=== PATIENT | male | born 1940 | race Caucasian/White ===

== ENCOUNTER 2020-02-06 17:17 | Inpatient (IN) | payer MEDICARE, SELFPAY ==
[2020-02-06] VITALS (8 sets, daily range): BP systolic 121–143; BP diastolic 72–105; PULSE 81–111; RESP 15–28; TEMP 36.9–39; O2SAT 92–95; BMI 27.3
--- NOTE | ~2020-02-06 | XR_ITS ---
EXAMINATION: XR chest 1V portable 02/06/2020 18:26 INDICATION: Fever. Hypoxia. PROCEDURE: AP portable chest COMPARISON: Comparison to multiple prior studies sequentially, with oldest reviewed study dated 12/12. FINDINGS: The lungs are clear. The cardiomediastinal silhouette is within normal limits. There are no pleural effusions. There is no pneumothorax suspected. IMPRESSION: 1: NO ACUTE CARDIOPULMONARY DISEASE. Reviewed, dictated and finalized at location A.
--- NOTE | 2020-02-06 18:04 | ECG_ITS ---
Measurements Intervals [place] Rate: 106 P: 43 CT: 145 QRS: 23 QRSD: 101 T: 49 QT: 335 QTc: 445 Interpretive Statements SINUS TACHYCARDIA DELAYED PRECORDIAL R/S TRANSITION INFERIOR INFARCT, AGE INDETERMINATE ABNORMAL ECG Electronically Signed On 02-06-2020 18:27:36 CDT by Luis Mosley D.O.
[2020-02-06] MEDS: SODIUM CHLORIDE 0.9% IV 1,000 ML 999 ML IV CONT (18:07)
[2020-02-06 18:16] LABS: Basophils Percent Auto 0.2 % (0.2-1.2); Hematocrit 45.5 % (42.0-52.0); Hemoglobin 15.7 g/dL (14.0-18.0); Immature Granulocyte Absolute 0.08 K/mm3 (0.00-0.031); Immature Granulocyte Percent A 0.5 % (0-0.5); Lymphocytes Absolute Auto 0.59 K/mm3 (0.9-3.2); Lymphocytes Percent Auto 3.9 % (18.3-44.2); Mean Corpuscular HGB Conc 34.5 g/dl (32-36); Mean Corpuscular Hemoglobin 30.1 pg (26-34); Mean Corpuscular Volume 87.2 fl (80-100); Mean Platelet Volume 10.8 fl (7.4-10.4); Monocytes Absolute Auto 0.9 K/mm3 (0.1-0.6); Monocytes Percent Auto 5.6 % (2.6-8.5); Neutrophils Absolute Auto 13.7 K/mm3 (1.3-6.7); Neutrophils Percent Auto 89.8 % (45.5-73.1); Platelet Count Result 155 k/mm3 (150-375); Red Blood Count 5.22 M/mm3 (4.6-6.20); Red Cell Distribution Width 12.4 % (11.5-14.5); White Blood Count 15.2 K/mm3 (4.5-10.0)
[2020-02-06 18:21] LABS: Add Urine Microscopic? YES; Appearance Urine Clear (Clear); Bilirubin Urine Negative (Negative); Blood Urine 2+ (Negative); Color Urine Yellow (Yellow); Glucose Urine UA Negative (Negative); Ketones Urine Negative (Negative); Leukocyte Esterase Ur Negative LEU/UL (Negative); Mucus Urine Rare /lpf; Nitrate Urine Negative (Negative); Protein Urine Negative (Negative); RBC Urine 51-75 /hpf (0-2); Specific Grav Ur 1.021 (1.001-1.035); Squamous Epithelial Cell Urine Rare /hpf (Few); Urobilinogen Urine Negative mg/dL (<2.0); WBC Urine 0-3 /hpf
[2020-02-06 18:25] LABS: INR 1.1; Prothrombin Time 13.7 Seconds (11.1-14.7)
[2020-02-06 18:26] LABS: Partial Thromboplastin Time 29.1 SECONDS (22.3-36.8)
[2020-02-06 18:28] LABS: Lactic Acid Reflex 0.9 mmol/L (0.7-2.1)
[2020-02-06 18:30] LABS: Alanine Aminotransferase 31 U/L (4-50); Albumin Level 3.9 g/dL (3.5-5.1); Alkaline Phosphatase 59 U/L (38-126); Aspartate Amino Transferase 32 U/L (17-59); Bilirubin,Total 1.3 mg/dL (0.2-1.3); Blood Urea Nitrogen 22 mg/dL (9-20); CRP 5.4 mg/dL (<1.0); Calcium 8.4 mg/dL (8.4-10.2); Carbon Dioxide 23 mmol/L (22-30); Chloride 106 mmol/L (98-107); Estimated CRCL calculation 43 ml/min; Estimated Glomerular Filt Rate 59; Glucose 111 mg/dL (75-110); Potassium 3.9 mmol/L (3.4-5.0); Sodium 136 mmol/L (137-145)
--- NOTE | 2020-02-06 18:48 | ED.GENADULT ---
HPI - General Adult General Chief complaint: Weakness Stated complaint: weakness Time Seen by Provider: 02/06/20 17:20 History of Present Illness HPI narrative: Patient is a 79-year-old male who presents ER with weakness and fever. Symptoms began yesterday evening. Associated with urinating on himself. No known sick contacts and apparently has not been traveling. Oxygen levels are low for EMS patient is tachypneic. He received nasal cannula oxygen for supportive therapy. Patient is oriented x3 but is fatigued to the point where has difficulty moving the bed and cannot give a history. Related Data Home Medications Medication Instructions Recorded Confirmed aspirin 325 mg PO DAILY 02/06/20 lisinopril 20 mg PO DAILY 02/06/20 Allergies Allergy/AdvReac Type Severity Reaction Status Date / Time gabapentin Allergy Severe Unknown Verified 02/06/20 17:23 Penicillins Allergy Unknown Unknown Verified 02/06/20 17:23 Review of Systems Review of Systems: All systems reviewed & are unremarkable except as noted in HPI and below Constitutional: Constitutional: Reports fever(s) and Reports weakness Eyes: Eyes: Denies change in vision and Denies photophobia ENT: Denies nasal congestion and Denies sore throat Cardiovascular: Cardiovascular: Denies chest pain and Denies radiating jaw, neck or arm pain Respiratory: Respiratory: Denies cough, Denies dyspnea and Denies wheezing Gastrointestinal: Gastrointestinal: Denies abdominal pain, Denies nausea and Denies vomiting Genitourinary: Genitourinary: Denies dysuria and Reports urinary incontinence Neurologic: Denies dizziness, Denies headache(s), Denies focal weakness and Denies numbness PMFSH Social History Social History Alcohol intake: never Exam Narrative: Exam Narrative: GENERAL: Ill/fatigued-appearing, well-nourished, and in no acute distress. HEAD: Normocephalic, atraumatic. EYES: PERRL and EOMI. ENT: Mucous membranes moist. NECK: Supple. Full range of motion that is painless. CHEST: Clear to auscultation. No respiratory distress mild tachypnea. HEART: Tachycardic and regular. Normal peripheral pulses. ABDOMEN: Soft, nontender, nondistended. EXTREMITIES: Normal range of motion. No edema. SKIN: Warm, dry, no rash. NEURO: No focal deficits. Alert and oriented x3. Course Course Emergency Course: Patient's received 1 L IV fluid. He is much more awake at this time. No longer tachycardic. He has been able to actually sit himself up in the bed. He has no complaints of headache/change in vision. He is not confused. He is very scared because he is sick and that he has lost strength and is trying to get it back. He denies any changes in skin or pain in his skin. He has no abdominal pain or urinary urgency/frequency. He reports he is gone to the grocery store and worn a mask when he has been there. Otherwise does not think he has been exposed to possible COVID illness. Patient remains tachypnea with borderline O2 sat. We will plan admit for observation and COVID testing. Vital Signs Vital signs: Vital Signs Temperature 102.2 F H 02/06/20 17:10 Pulse Rate 111 H 02/06/20 17:10 Respiratory Rate 28 H 02/06/20 17:10 Blood Pressure 139/82 02/06/20 17:10 Pulse Oximetry 92 02/06/20 17:10 Temperature 98.4 F 02/06/20 18:59 Pulse Rate 90 02/06/20 18:59 Respiratory Rate 26 H 02/06/20 18:59 Blood Pressure 143/105 H 02/06/20 18:59 Pulse Oximetry 93 02/06/20 18:59 Medical Decision Making Vital Signs Vital Signs: Vital Signs Temperature 102.2 F H 02/06/20 17:10 Pulse Rate 111 H 02/06/20 17:10 Respiratory Rate 28 H 02/06/20 17:10 Blood Pressure 139/82 02/06/20 17:10 Pulse Oximetry 92 02/06/20 17:10 Temperature 98.4 F 02/06/20 18:59 Pulse Rate 90 02/06/20 18:59 Respiratory Rate 26 H 02/06/20 18:59 Blood Pressure 143/105 H 02/06/20 18:59 Pulse Oximetr
--- NOTE | 2020-02-06 20:32 | ADMGEN ---
This patient, Cristobal Miller, was admitted to 3 [facility] Surg Room 332-01. Patient/family oriented to hospital policies and general routines including ID bracelet, bed and alarms, visiting hours, pain management, procedures, bathroom and other care routines, personal items, smoking policy, room service/diet, and visiting hours. Valuables list has been completed. Information on how to activate the Rapid Response Team has been discussed. Patient/Family are encouraged to report perceived risks to care and to ask questions if they do not understand what they are told or what they should do.
[2020-02-06] MEDS: SODIUM CHLORIDE 0.9% IV 1,000 ML 125 ML IV CONT (21:20)
--- NOTE | 2020-02-06 23:02 | PM.IMHP ---
H&P: HPI History of Present Illness Chief complaint: Fever and generalized weakness Narrative: Date and time of patient contact: 02/06/2020 at 10:10 p.m. Cristobal Miller is a 79 year old male with a past medical history of coronary artery disease, hypertension, and prior skin infections who presented to the ER with fever and generalized weakness. Patient's oxygen saturations per EMS were 90%. However after he arrived to the ER his oxygen saturations remained 92% or greater. The patient began having fever and generalized weakness on the . He became so weak that when he went to stand up and get out of bed he could not make it to the bathroom without urinating on himself. He initially denied any known sick contacts. However his granddaughter was recently diagnosed with Covid but she was asymptomatic (she was tested while she was at college). She had that was negative. He denies any direct contact with his granddaughter. He denied having any cough or cold symptoms. But while I was in the room the patient was noted to have a mild nonproductive cough. Was noted to be mildly tachypneic on exam. Or vomiting. He has had decreased appetite for the last 24 hours. He had not had anything to eat since the . He denies any sore throat or upper respiratory symptoms. He denies any dysuria or changes in urinary frequency. He does have a history of BPH and has chronically decreased urinary stream. He denied any dysuria. It is unclear when he last had a bowel movement. He initially reported having diarrhea but then when I did repeat questioning when the patient was more alert he denied having diarrhea. The patient's told nursing staff that the patient has episodes of minute unexplained fever and lethargy every 6 months or so. It was somewhat difficult to get history from the patient as he fell asleep numerous times during my evaluation. After multiple attempts the patient finally did stay awake for the remainder of the interview. Review of Systems Review of Systems: Narrative: 12 systems were reviewed with pertinent positives and negatives per HPI. Except as documented in the HPI, all other systems were reviewed and are negative. 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 Garcia Donato Code status: Full code Smoking packs per day: 1 Smoking cigarettes per day: 20.0 Years smoked: 55 Smoking pack-years: 55.00 Smoking status: Former smoker Tobacco type: cigarettes Second hand tobacco smoke exposure: No Smoking end date: 07/29/13 Alcohol intake: never Substance use: never Living arrangements: with family Additional living arrangements comments: He lives in [place] with his of 56 years. Gender identity (if verbalized by the patient): Male Spiritual care concerns: No Meds Home Medications and Allergies Home Medications Medication Instructions Recorded Confirmed Type finasteride 5 mg tablet
[2020-02-07] VITALS (13 sets, daily range): BP systolic 127–138; BP diastolic 53–75; PULSE 53–92; RESP 16–24; TEMP 36–37.4; O2SAT 93–98
[2020-02-07] MEDS: SODIUM CHLORIDE 0.9% IV 1,000 ML 125 ML IV CONT ×2 (05:28→15:14)
[2020-02-07 06:44] LABS: Basophils Percent Auto 0.2 % (0.2-1.2); Eosinophils Absolute Auto 0.1 K/mm3 (0-0.3); Eosinophils Percent Auto 0.6 % (0-4.4); Hematocrit 40.1 % (42.0-52.0); Hemoglobin 13.8 g/dL (14.0-18.0); Immature Granulocyte Absolute 0.04 K/mm3 (0.00-0.031); Immature Granulocyte Percent A 0.4 % (0-0.5); Lymphocytes Absolute Auto 1.43 K/mm3 (0.9-3.2); Mean Corpuscular HGB Conc 34.4 g/dl (32-36); Mean Corpuscular Hemoglobin 30.3 pg (26-34); Mean Corpuscular Volume 88.1 fl (80-100); Mean Platelet Volume 10.6 fl (7.4-10.4); Monocytes Absolute Auto 0.8 K/mm3 (0.1-0.6); Monocytes Percent Auto 7.6 % (2.6-8.5); Neutrophils Absolute Auto 7.9 K/mm3 (1.3-6.7); Neutrophils Percent Auto 77.2 % (45.5-73.1); Platelet Count Result 128 k/mm3 (150-375); Red Blood Count 4.55 M/mm3 (4.6-6.20); Red Cell Distribution Width 12.4 % (11.5-14.5); White Blood Count 10.2 K/mm3 (4.5-10.0)
[2020-02-07 06:59] LABS: Blood Urea Nitrogen 22 mg/dL (9-20); Calcium 7.5 mg/dL (8.4-10.2); Carbon Dioxide 23 mmol/L (22-30); Chloride 109 mmol/L (98-107); Estimated CRCL calculation 48 ml/min; Estimated Glomerular Filt Rate > 60; Glucose 118 mg/dL (75-110); Potassium 3.7 mmol/L (3.4-5.0); Sodium 136 mmol/L (137-145)
[2020-02-07] MEDS: amLODIPine BESYLATE 5 MG TABLET PO (09:31)
[2020-02-07] MEDS: FINASTERIDE 5 MG TABLET PO (09:31)
[2020-02-07] MEDS: ASPIRIN 325 MG TABLET PO (09:31)
[2020-02-07] MEDS: TAMSULOSIN HCL 0.4 MG CAPSULE PO (09:31)
[2020-02-07] MEDS: ENOXAPARIN 40 MG/0.4 ML SYRINGE SUB-Q (09:31)
--- NOTE | 2020-02-07 16:42 | PM.IMPN ---
Progress Note: A&P Assessment and Plan (1) Sepsis: Qualifiers: Sepsis type: sepsis due to unspecified organism Sepsis acute organ dysfunction status: without acute organ dysfunction Qualified Code(s): A41.9 - Sepsis, unspecified organism Code(s): A41.9 - Sepsis, unspecified organism Status: Acute Assessment and Plan: Based on criteria of leukocytosis, fever of 102.2, tachycardia, and tachypnea. Likely due to pulmonary source given the patient's mild hypoxia, and witness dry cough. Blood cultures and Covid testing pending Patient received Rocephin in the ER will add azithromycin. 02/07/20 16:42 Patient is 79-year-old male history of coronary disease hypertension [place] that [place] and has not been in contact with outside other than his immediate family however his granddaughter is positive COVID-19 but he has not been in contact directly with her he presented emergency department with a fatigue weak fever shortness of breath difficulty ambulating patient was tachypneic, concern the patient may have a COVID-19 currently is in isolation today patient is feeling much better was able to ambulate to the bathroom without any difficulty currently denies any chest pain shortness of breath fever or chills, patient met the criteria for sepsis upon arrival most likely source infection pneumonia (2) Person under investigation for COVID-19: Code(s): Z20.828 - Contact with and (suspected) exposure to other viral communicable diseases Status: Acute Assessment and Plan: COVID-19 testing pending Subjective Date/time seen: 02/07/20 16:42 Patient is 79-year-old male history of coronary disease hypertension he states that [place] and has not been in contact with outside other than his immediate family however his granddaughter is positive COVID-19 but he has not been in contact directly with her he presented emergency department with a fatigue weak fever shortness of breath difficulty ambulating patient was tachypneic, concern the patient may have a COVID-19 currently is in isolation today patient is feeling much better was able to ambulate to the bathroom without any difficulty currently denies any chest pain shortness of breath fever or chills, patient met the criteria for sepsis upon arrival most likely source infection pneumonia Review of Systems Review of Systems: All systems reviewed & are unremarkable except as noted in HPI and below Exam Narrative: Exam Narrative: Patient was seen but not examine, temperature is 97?.1, pulse is 66 respiratory is 60 pulse ox is 96 at room air blood pressure is 136/75 Const: General: comfortable and no acute distress HENMT: General nose exam: Normal nares present Eyes: Sclera: sclerae normal Neck: Other: No retraction Resp: Effort & Inspection: normal respiratory effort GI: Other: Not distended Skin: General skin exam: normal color Neuro: Speech: normal speech Extrem: General: normal to inspection Psych: Mental Status: mental status grossly normal Affect: normal affect Objective Data Vital Signs Vital Signs: Vital Signs - 24 hr 02/06/20 17:10 02/06/20 17:22 02/06/20 18:09 Temperature 102.2 F H Pulse Rate 111 H 110 H 108 H Respiratory Rate 28 H 15 Blood Pressure 139/82 121/80 Pulse Oximetry 92 93 02/06/20 18:59 02/06/20 20:15 02/06/20 20:20 Temperature 98.4 F Pulse Rate 90 81 Respiratory Rate 26 H 19 Blood Pressure 143/105 H 121/74 Pulse Oximetry 93 93 93 02/06/20 20:30 02/06/20 20:35 02/07/20 00:00 Temperature 99.7 F H Pulse Rate 88 90 59 L Respiratory Rate 18 Blood Pressure 137/72 Pulse Oximetry 95 02/07/20 01:49 02/07/20 02:00 02/07/20 04:00 Temperature 99.4 F Pulse Rate 76 62 Respiratory Rate 24 H Blood Pressure 127/54 L Pulse Oximetry 93 93 02/07/20 06:00 02/07/20 08:00 02/07/20 10:00 Temperature 96.8 F L 97.8 F Pulse Rate 64 63 68 Respiratory Rate 16
[2020-02-08] VITALS (9 sets, daily range): BP systolic 126–156; BP diastolic 51–76; PULSE 54–81; RESP 18–20; TEMP 36.7–36.9; O2SAT 95–97
[2020-02-08] MEDS: SODIUM CHLORIDE 0.9% IV 1,000 ML 125 ML IV CONT ×3 (00:47→22:13)
[2020-02-08 08:01] LABS: Basophils Percent Auto 0.3 % (0.2-1.2); Eosinophils Absolute Auto 0.1 K/mm3 (0-0.3); Eosinophils Percent Auto 1.7 % (0-4.4); Hematocrit 40.6 % (42.0-52.0); Hemoglobin 13.8 g/dL (14.0-18.0); Immature Granulocyte Absolute 0.07 K/mm3 (0.00-0.031); Immature Granulocyte Percent A 0.9 % (0-0.5); Immature Platelet Fraction Pct 3.4 % (0.9-11.2); Lymphocytes Absolute Auto 1.19 K/mm3 (0.9-3.2); Lymphocytes Percent Auto 15.3 % (18.3-44.2); Mean Corpuscular Hemoglobin 29.7 pg (26-34); Mean Corpuscular Volume 87.5 fl (80-100); Mean Platelet Volume 10.5 fl (7.4-10.4); Monocytes Absolute Auto 0.6 K/mm3 (0.1-0.6); Monocytes Percent Auto 8.1 % (2.6-8.5); Neutrophils Absolute Auto 5.8 K/mm3 (1.3-6.7); Neutrophils Percent Auto 73.7 % (45.5-73.1); Platelet Count Result 148 k/mm3 (150-375); Red Blood Count 4.64 M/mm3 (4.6-6.20); Red Cell Distribution Width 12.5 % (11.5-14.5); White Blood Count 7.8 K/mm3 (4.5-10.0)
[2020-02-08 08:26] LABS: Alanine Aminotransferase 27 U/L (4-50); Albumin Level 3.5 g/dL (3.5-5.1); Alkaline Phosphatase 52 U/L (38-126); Aspartate Amino Transferase 30 U/L (17-59); Bilirubin,Total 0.6 mg/dL (0.2-1.3); Blood Urea Nitrogen 14 mg/dL (9-20); CRP 5.1 mg/dL (<1.0); Calcium 7.8 mg/dL (8.4-10.2); Carbon Dioxide 26 mmol/L (22-30); Chloride 108 mmol/L (98-107); Estimated CRCL calculation 58 ml/min; Estimated Glomerular Filt Rate > 60; Glucose 97 mg/dL (75-110); Potassium 3.8 mmol/L (3.4-5.0); Sodium 139 mmol/L (137-145)
[2020-02-08] MEDS: TAMSULOSIN HCL 0.4 MG CAPSULE PO (09:12)
[2020-02-08] MEDS: amLODIPine BESYLATE 5 MG TABLET PO (09:12)
[2020-02-08] MEDS: FINASTERIDE 5 MG TABLET PO (09:13)
[2020-02-08] MEDS: ASPIRIN 325 MG TABLET PO (09:13)
[2020-02-08] MEDS: ENOXAPARIN 40 MG/0.4 ML SYRINGE SUB-Q (09:13)
[2020-02-08 10:42] LABS: SARS-CoV-2 RNA PCR Negative
--- NOTE | 2020-02-08 15:13 | PM.IMPN ---
Progress Note: A&P Assessment and Plan (1) Sepsis: Qualifiers: Sepsis acute organ dysfunction status: without acute organ dysfunction Sepsis type: sepsis due to unspecified organism Qualified Code(s): A41.9 - Sepsis, unspecified organism Code(s): A41.9 - Sepsis, unspecified organism Status: Acute Assessment and Plan: Based on criteria of leukocytosis, fever of 102.2, tachycardia, and tachypnea. Likely due to pulmonary source given the patient's mild hypoxia, and witness dry cough. Blood cultures and Covid testing pending 02/08/20 15:13 Patient is 79-year-old male history of coronary disease hypertension he [place] that [place] and has not been in contact with outside other than his immediate family however his granddaughter is positive COVID-19 but he has not been in direct contact with her he presented to emergency department with a fatigue weak fever shortness of breath difficulty ambulating patient was tachypneic, concern the patient may have a COVID-19 he was placed in isolation, with fever, leukocytosis, tachypnea tachycardia suspected sepsis possible source pneumonia, patient was started on Rocephin azithromycin for possible pneumonia, today patient's COVID-19 test is negative, chest x-ray did not show any pneumonia, urine is clear, and there is no growth so far for the blood culture, he is feeling much better was able to ambulate to the bathroom without any difficulty currently denies any chest pain shortness of breath fever or chills, plan is to monitor 1 more day if there is no fever and there is no bacterial growth in blood culture he can be discharged home (2) Person under investigation for COVID-19: Code(s): Z20.828 - Contact with and (suspected) exposure to other viral communicable diseases Status: Acute Assessment and Plan: COVID-19 testing pending Subjective Date/time seen: 02/08/20 15:13 Patient is 79-year-old male history of coronary disease hypertension he states that [place] and has not been in contact with outside other than his immediate family however his granddaughter is positive COVID-19 but he has not been in direct contact with her he presented to emergency department with a fatigue weak fever shortness of breath difficulty ambulating patient was tachypneic, concern the patient may have a COVID-19 he was placed in isolation, with fever, leukocytosis, tachypnea tachycardia suspected sepsis possible source pneumonia, patient was started on Rocephin azithromycin for possible pneumonia, today patient's COVID-19 test is negative, chest x-ray did not show any pneumonia, urine is clear, and there is no growth so far for the blood culture, he is feeling much better was able to ambulate to the bathroom without any difficulty currently denies any chest pain shortness of breath fever or chills, plan is to monitor 1 more day if there is no fever and there is no bacterial growth in blood culture he can be discharged home Review of Systems Review of Systems: All systems reviewed & are unremarkable except as noted in HPI and below Exam Const: General: comfortable and no acute distress HENMT: General nose exam: Normal nares present Eyes: General: appearance normal, both eyes and all related structures Sclera: sclerae normal Neck: Neck: supple Other: No retraction Resp: Effort & Inspection: normal respiratory effort Auscultation: clear to auscultation bilaterally Cardio: Rate: regular rate Rhythm: regular rhythm GI: Auscultation: normal bowel sounds Other: Not distended Skin: General skin exam: normal color Neuro: Speech: normal speech Sensory Exam: normal sensation Extrem: General: normal to inspection Psych: Mental Status: mental status grossly normal Affect: normal affect Objective Data Vital Signs Vital Signs: Vital Signs - 24 hr 02/07/20 16:00 02/07/20 18:00 02/07/20 20:00 Temperature 97.3 F L Pulse Rate 76 66 92 Resp
[2020-02-09 06:00] VITALS: BP 132/54; PULSE 56; RESP 18; TEMP 36.8; O2SAT 94
[2020-02-09 06:29] LABS: Basophils Percent Auto 0.4 % (0.2-1.2); Eosinophils Absolute Auto 0.2 K/mm3 (0-0.3); Eosinophils Percent Auto 2.1 % (0-4.4); Hematocrit 37.9 % (42.0-52.0); Hemoglobin 13.1 g/dL (14.0-18.0); Immature Granulocyte Absolute 0.04 K/mm3 (0.00-0.031); Immature Granulocyte Percent A 0.5 % (0-0.5); Lymphocytes Absolute Auto 1.34 K/mm3 (0.9-3.2); Lymphocytes Percent Auto 17.9 % (18.3-44.2); Mean Corpuscular HGB Conc 34.6 g/dl (32-36); Mean Corpuscular Hemoglobin 30.1 pg (26-34); Mean Corpuscular Volume 87.1 fl (80-100); Mean Platelet Volume 10.9 fl (7.4-10.4); Monocytes Absolute Auto 0.6 K/mm3 (0.1-0.6); Monocytes Percent Auto 7.8 % (2.6-8.5); Neutrophils Absolute Auto 5.3 K/mm3 (1.3-6.7); Neutrophils Percent Auto 71.3 % (45.5-73.1); Platelet Count Result 149 k/mm3 (150-375); Red Blood Count 4.35 M/mm3 (4.6-6.20); Red Cell Distribution Width 12.6 % (11.5-14.5); White Blood Count 7.5 K/mm3 (4.5-10.0)
[2020-02-09 06:43] LABS: Alanine Aminotransferase 26 U/L (4-50); Albumin Level 3.3 g/dL (3.5-5.1); Alkaline Phosphatase 42 U/L (38-126); Aspartate Amino Transferase 29 U/L (17-59); Bilirubin,Total 0.5 mg/dL (0.2-1.3); Blood Urea Nitrogen 16 mg/dL (9-20); CRP 3.2 mg/dL (<1.0); Calcium 7.5 mg/dL (8.4-10.2); Carbon Dioxide 23 mmol/L (22-30); Chloride 109 mmol/L (98-107); Estimated CRCL calculation 53 ml/min; Estimated Glomerular Filt Rate > 60; Glucose 100 mg/dL (75-110); Potassium 3.9 mmol/L (3.4-5.0); Sodium 138 mmol/L (137-145)
[2020-02-09] MEDS: SODIUM CHLORIDE 0.9% IV 1,000 ML 125 ML IV CONT (08:29)
[2020-02-09] MEDS: amLODIPine BESYLATE 5 MG TABLET PO (08:30)
[2020-02-09] MEDS: FINASTERIDE 5 MG TABLET PO (08:30)
[2020-02-09] MEDS: TAMSULOSIN HCL 0.4 MG CAPSULE PO (08:30)
[2020-02-09] MEDS: ASPIRIN 325 MG TABLET PO (08:30)
[2020-02-09] MEDS: ENOXAPARIN 40 MG/0.4 ML SYRINGE SUB-Q (08:31)
--- NOTE | 2020-02-09 12:17 | PM.DS ---
DS: Admitting Diagnosis Admitting Diagnosis Admitting Diagnosis: Sepsis, unspecified organism DS: Discharge Diagnosis Discharge Diagnosis (1) Acute febrile illness: Code(s): R50.9 - Fever, unspecified Status: Acute (2) Person under investigation for COVID-19: Code(s): Z20.828 - Contact with and (suspected) exposure to other viral communicable diseases Status: Acute (3) Facial eczema: Code(s): L30.9 - Dermatitis, unspecified Status: Acute (4) Hx of abdominal aortic aneurysm: Code(s): Z86.79 - Personal history of other diseases of the circulatory system Status: Acute (5) Acute bronchiolitis: Code(s): J21.9 - Acute bronchiolitis, unspecified Status: Acute DS: Summary Hospital Course Hospital Course: 79 yo who presented to the hospital with cough and fever, he had a COVID 19 PCR that was negative, his cxr did not show clear infiltrates. He most likely has an acute bronchitis , he received abx and he has been afebrile for more than 48 hrs, he is in room air and has no complains today. He will be discharged on cefdinir to complete 7 days treatment, all his blood cultures hade been negative. He should follow up with his PCP, no changes on his home medications. Status at Discharge Functional status at discharge: independent ambulation Overall status at discharge: patient is back to baseline Time Spent with Patient Time attestation: Total time spent providing and/or coordinating discharge services: Time spent: Greater than 30 minutes Exam Const: General: no acute distress Neck: Neck: supple and no JVD Resp: Effort & Inspection: normal respiratory effort Auscultation: clear to auscultation bilaterally Cardio: Rate: regular rate Rhythm: regular rhythm Skin: General skin exam: normal color Neuro: Motor exam (neuro): 5/5 motor strength present throughout and Normal motor muscle tone present throughout Sensory Exam: normal sensation Extrem: General: normal to inspection DS: Data Data Completed and Pending Labs on day of discharge: Labs from last 24 hours 02/09/20 02/09/20 05:57 05:57 WBC 7.5 RBC 4.35 L Hgb 13.1 L Hct 37.9 L MCV 87.1 MCH 30.1 MCHC 34.6 RDW 12.6 Plt Count 149 L MPV 10.9 H Immature Gran % (Auto) 0.5 Neut % (Auto) 71.3 Lymph % (Auto) 17.9 L [place] % (Auto) 7.8 Eos % (Auto) 2.1 Baso % (Auto) 0.4 Lymph # (Auto) 1.34 [place] # (Auto) 0.6 Eos # (Auto) 0.2 Baso # (Auto) 0.0 Abs Immat Gran (auto) 0.04 H Absolute Neuts (auto) 5.3 Absolute Nucleated RBC 0.0 Nucleated RBC % 0.0 Sodium 138 Potassium 3.9 Chloride 109 H Carbon Dioxide 23 BUN 16 Creatinine 1.00 Estim Creat Clear Calc 53 Estimated GFR > 60 Glucose 100 Calcium 7.5 L Total Bilirubin 0.5 AST 29 ALT 26 Alkaline Phosphatase 42 C-Reactive Protein 3.2 H Total Protein 6.0 L Albumin 3.3 L Preliminary micro results at discharge 02/06/20 20:09 Blood Culture - Preliminary Blood 02/06/20 20:04 Blood Culture - Preliminary Blood 02/06/20 18:03 Blood Culture - Preliminary Blood 02/06/20 18:03 Blood Culture - Preliminary Blood Discharge Plan Discharge Attending physician on discharge: Gaurang Abel Discharging Clinician: Gaurang Abel Patient Disposition: Home, Self-Care Activity: as tolerated Diet: regular Patient Instructions: Antibiotic Form, Fever in Adults (GEN), Weakness (GEN), Complications of Infection (GEN) Stand Alone Forms: General Discharge Information Follow-up/Referrals: Garcia Donato DO [Primary Care Provider] - Discharge Medications: New cefdinir 300 mg capsule 300 mg PO Q12H Qty: 8 RF: 0 Continued finasteride 5 mg tablet 5 mg PO DAILY Qty: 90 RF: 2 aspirin 325 mg Tablet 325 mg PO DAILY RF: 0 tamsulosin 0.4 mg capsule 0.4 mg PO DAILY RF: 0 amlodipine 5 mg tablet 5 mg PO DAILY Qty:
== END 2020-02-09 13:10 | disposition home or self-care (01) | DRG 872 ==
LOC: ANHED 19:03 → ANH3MEDSUR 19:45
PROVIDERS: Family Medicine; Admitting Provider Internal Medicine; Emergency Provider Emergency Medicine; PCP Internal Medicine; Visit Provider Hospitalist
DX: A41.9 Sepsis, unspecified organism (principal); J20.9 Acute bronchitis, unspecified; Z20.828 Contact with and (suspected) exposure to other viral communicable diseases; R50.9 Fever, unspecified; R09.02 Hypoxemia; N40.0 Benign prostatic hyperplasia without lower urinary tract symptoms; I10 Essential (primary) hypertension; E78.5 Hyperlipidemia, unspecified; R91.1 Solitary pulmonary nodule; I25.10 Atherosclerotic heart disease of native coronary artery without angina pectoris; Z95.5 Presence of coronary angioplasty implant and graft; Z95.1 Presence of aortocoronary bypass graft; Z87.891 Personal history of nicotine dependence; L30.9 Dermatitis, unspecified; Z86.79 Personal history of other diseases of the circulatory system
CPT/HCPCS: 36415; 51701; 71045; 80048; 80053; 81001; 83605; 85025; 85055; 85610; 85730; 86140; 87040; 87635; 93005; 96361; 96365; 96366; 96367; 96372; 99285; A9270; C9803; G0378; J0456; J0696; J1650; J7030; U0003

== ENCOUNTER 2020-12-30 19:47 | Inpatient (IN) | payer MEDICARE, SELFPAY ==
--- NOTE | ~2020-12-30 | XR_ITS ---
XR chest 1V portable DATE: 12/30/2020 20:27 INDICATION: Shortness of breath, wheezing. 103 degrees fever. Right lower leg edema. TECHNIQUE: Portable upright AP chest on 12/30/20202026 hours COMPARISON: 02/06/2020 portable AP chest FINDINGS: Heart size appears within normal limits. There is mild aortic unfolding. No pulmonary consolidation, pulmonary vascular congestion, pleural effusion or pneumothorax. Osteopen ia. IMPRESSION: No active disease Reviewed, dictated and finalized at location A. IMPRESSION: No active disease
[2020-12-30 19:47] VITALS: BP 122/66; PULSE 114; RESP 34; TEMP 39.4; O2SAT 91
--- NOTE | 2020-12-30 19:59 | ECG_ITS ---
Measurements Intervals [place] Rate: 113 P: 27 [place]: 156 QRS: 42 QRSD: 78 T: 53 QT: 296 QTc: 407 Interpretive Statements SINUS TACHYCARDIA BORDERLINE R WAVE PROGRESSION, ANTERIOR LEADS INFERIOR INFARCT, AGE INDETERMINATE BASELINE ARTIFACT- I, II, AVR ABNORMAL ECG Electronically Signed On 12-30-2020 20:35:50 CDT by Luis Mosley D.O.
[2020-12-30 20:17] LABS: Basophils Percent Auto 0.3 % (0.2-1.2); Eosinophils Percent Auto 0.1 % (0-4.4); Hematocrit 44.4 % (42.0-52.0); Immature Granulocyte Absolute 0.09 K/mm3 (0.00-0.031); Immature Granulocyte Percent A 0.7 % (0-0.5); Lymphocytes Absolute Auto 0.68 K/mm3 (0.9-3.2); Lymphocytes Percent Auto 5.1 % (18.3-44.2); Mean Corpuscular HGB Conc 33.8 g/dl (32-36); Mean Corpuscular Hemoglobin 29.8 pg (26-34); Mean Corpuscular Volume 88.3 fl (80-100); Mean Platelet Volume 10.1 fl (7.4-10.4); Monocytes Absolute Auto 0.3 K/mm3 (0.1-0.6); Neutrophils Absolute Auto 12.3 K/mm3 (1.3-6.7); Neutrophils Percent Auto 91.8 % (45.5-73.1); Platelet Count Result 173 k/mm3 (150-375); Red Blood Count 5.03 M/mm3 (4.6-6.20); Red Cell Distribution Width 12.4 % (11.5-14.5); White Blood Count 13.4 K/mm3 (4.5-10.0)
--- NOTE | 2020-12-30 20:24 | ED.SOB ---
HPI - SOB/Dyspnea General Chief Complaint: Shortness of Breath/Dyspnea Stated Complaint: resp distress Time Seen by Provider: 12/30/20 19:50 Source: patient, family and EMS Mode of arrival: EMS Limitations: clinical condition History of Present Illness HPI Narrative: 80-year-old male Brought in by EMS with a fever Patient reports that he just felt relatively abruptly weak He may also be slightly confused, he does not really recall complaining of being short of breath or that he was given a nebulizer by EMS before arriving here He denies a headache or a sore throat, does not recall having a cough, no abdominal pain vomiting or diarrhea, no new rashes He has a chronically swollen right leg after having what sounds like it might have been vascular surgery 5 to 10 years ago He also has what sounds like BPH and chronic difficulty with urination Similar episode last summer, unclear if a certain dx was made then Related Data Home Medications Medication Instructions Recorded Confirmed aspirin 325 mg PO DAILY 02/06/20 11/23/20 trospium 20 mg PO DAILY 12/30/20 12/30/20 Allergies Allergy/AdvReac Type Severity Reaction Status Date / Time gabapentin Allergy Severe Unknown Verified 11/23/20 08:04 Penicillins Allergy Severe hives Verified 11/23/20 08:04 Review of Systems Review of Systems: All systems reviewed & are unremarkable except as noted in HPI and below Constitutional: Constitutional: Reports no additional constitutional complaints, Reports chills, Reports fatigue, Reports fever(s), Denies headache(s) and Reports weakness Eyes: Eyes: Reports no additional eye complaints and Denies change in vision ENT: Denies headache(s) and Denies sore throat Cardiovascular: Cardiovascular: Denies chest pain and Denies dyspnea Respiratory: Respiratory: Denies cough and Reports dyspnea Gastrointestinal: Gastrointestinal: Denies abdominal pain, Denies diarrhea and Denies vomiting Genitourinary: Genitourinary: Reports oliguria, Denies dysuria and Denies urinary frequency Musculoskeletal: Musculoskeletal: Reports myalgias, Denies deformity, Denies arthralgias, Denies joint swelling and Denies numbness Integumentary/Breasts: Skin/Breast: Denies rash and Denies wounds Neurologic: Denies headache(s), Denies focal weakness and Denies numbness Psychiatric: Psychiatric: Reports no additional psychiatric complaints Endocrine: Endocrine: Reports no additional endocrine complaints Hematologic/Lymphatic: Hematologic/Lymphatic: Reports no additional hematologic/lymphatic complaints Allergic/Immunologic: Allergic/Immunologic: Reports no additional allergic/immunologic complaints [facility] Past Medical History Medical History (Updated 12/30/20 @ 23:09 by Alex Mcgee MD) Benign prostate hyperplasia Chronic gingival disease Coronary atherosclerosis Diastolic dysfunction Noted on echocardiogram August 2016 with EF of 60% Essential (primary) hypertension History of BPH Hyperlipidemia Lung nodule Scrotal sebaceous cyst Surgical History Surgical History Abdominal aortic aneurysm 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 Garcia Donato Code status: Full code Smoking packs per day: 1 Smoking cigarettes per day: 20.0 Years smoked: 55 Smoking pack-years: 55.00 Smoking status: Former smoker Tobacco type: cigarettes Second hand tob
[2020-12-30 20:26] LABS: Lactic Acid Reflex 2.5 mmol/L (0.7-2.1)
[2020-12-30 20:27] LABS: Alanine Aminotransferase 40 U/L (4-50); Albumin Level 3.9 g/dL (3.5-5.1); Alkaline Phosphatase 79 U/L (38-126); Anion Gap 11 mmol/L (8-16); Aspartate Amino Transferase 34 U/L (17-59); Bilirubin,Total 1.2 mg/dL (0.2-1.3); Blood Urea Nitrogen 23 mg/dL (9-20); Calcium 8.9 mg/dL (8.4-10.2); Carbon Dioxide 21 mmol/L (22-30); Chloride 106 mmol/L (98-107); Estimated CRCL calculation 40 ml/min; Estimated Glomerular Filt Rate 49; Glucose 183 mg/dL (75-110); Potassium 4.6 mmol/L (3.4-5.0); Sodium 138 mmol/L (137-145)
[2020-12-30 21:00] VITALS: BP 152/74; PULSE 99; RESP 22; O2SAT 95
[2020-12-30] MEDS: LACTATED RINGERS 1,000 ML 999 ML IV CONT ×2 (21:00)
[2020-12-30 21:57] VITALS: BP 141/76; PULSE 85; RESP 20; O2SAT 97
[2020-12-30 22:11] LABS: Add Urine Microscopic? YES; Appearance Urine Cloudy (Clear); Bacteria Urine Trace /hpf; Bilirubin Urine Negative (Negative); Blood Urine 1+ (Negative); Color Urine Yellow (Yellow); Glucose Urine UA Negative (Negative); Ketones Urine Negative (Negative); Leukocyte Esterase Ur 3+ LEU/UL (Negative); Mucus Urine Rare /lpf; Nitrate Urine Positive (Negative); Protein Urine 1+ mg/dL (Negative); RBC Urine 21-50 /hpf (0-2); Specific Grav Ur 1.016 (1.001-1.035); Squamous Epithelial Cell Urine Rare /hpf (Few); Transitional Epi Cells Urine Rare /hpf (None Seen); Urobilinogen Urine Negative mg/dL (<2.0); WBC Clumps Urine Present /HPF; WBC Urine >75 /hpf
[2020-12-30 22:55] VITALS: BP 129/67; PULSE 80; RESP 16; O2SAT 93
[2020-12-30 23:07] VITALS: BP 150/86; PULSE 75; RESP 18; TEMP 36.6; O2SAT 98
[2020-12-30 23:14] LABS: Reflex Lactic Acid Yes or No Add Lactic
--- NOTE | 2020-12-30 23:30 | PM.IMHP ---
H&P: HPI History of Present Illness Date/Time: 12/30/20 23:30 Chief Complaint: alterd mental status Narrative: HPI Narrative: 80-year-old male who presents to the ED via EMS with generalised weakness and confusion. He was also noted to be sob by EMS and was givne nebulizer. he was noted to have urinary tract infection with elevated wbc count of 30k along with fever upon presentation. diagnsoed with sepsis and received fluid resuscitation, improved tachycardia. he is currently somnolent and not able to provide me much history. he opens his eyes and follows commands. further history could not be eluciddated currently. no reports of headache, nausea, vomting, abdominal pain, sob, chest pain. Review of Systems Review of Systems: Narrative: - CONSTITUTIONAL: Denies weight loss, fever and chills. - HEENT: Denies changes in vision and hearing - RESPIRATORY: Denies SOB and cough. - CV: Denies palpitations and CP. - GI: Denies abdominal pain, nausea, vomiting and diarrhea. - : Denies dysuria and urinary frequency. - MSK: Denies myalgia and joint pain. - SKIN: Denies rash and pruritus. - NEUROLOGICAL: Denies headache and syncope. - PSYCHIATRIC: Denies recent changes in mood. Denies anxiety and depression. 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 Garcia Donato Code status: Full code Smoking packs per day: 1 Smoking cigarettes per day: 20.0 Years smoked: 55 Smoking pack-years: 55.00 Smoking status: Former smoker Tobacco type: cigarettes Second hand tobacco smoke exposure: No Smoking end date: 07/29/13 Alcohol intake: never Substance use: never Additional living arrangements comments: He lives in [place] with his of 56 years. Gender identity (if verbalized by the patient): Male Spiritual care concerns: No Meds Home Medications and Allergies Home Medications Medication Instructions Recorded Confirmed Type aspirin 325 mg PO DAILY 02/06/20 11/23/20 History finasteride 5 mg tablet 5 mg PO DAILY #90 tablet 04/06/20 11/23/20 Rx amlodipine 5 mg tablet See Rx Instructions .ROUTE 08/08/20 11/23/20 Rx .COMPLEX #90 tablet tamsulosin 0.4 mg capsule See Rx Instructions .ROUTE 08/08/20 11/23/20 Rx .COMPLEX #90 capsule atorvastatin 10 mg tablet See Rx Instructions .ROUTE 12/12/20 Rx .COMPLEX #90 tablet trospium 20 mg PO DAILY 12/30/20 12/30/20 History Allergies Allergy/AdvReac Type Severity Reaction Status Date / Time gabapentin Allergy Severe Unknown Verified 11/23/20 08:04 Penicillins Allergy Severe hives Verified 11/23/20 08:04 Vital Signs Vital Signs - 24 hr 12/30/20 19:47 12/30/20 21:00 12/30/20 21:57 Temperature 103 F H Pulse Rate 114 H 99 85 Respiratory Rate 34 H 22 H 20 Blood Pressur
[2020-12-30 23:49] VITALS: O2SAT 93
[2020-12-31] VITALS: BP 124/37; PULSE 66; TEMP 36.6; O2SAT 96
[2020-12-31] MEDS: LACTATED RINGERS 1,000 ML 150 ML IV CONT ×2 (00:06→06:14)
[2020-12-31 00:10] LABS: Lactic Acid 1.5 mmol/L (0.7-2.1)
[2020-12-31 04:00] VITALS: BP 115/49; PULSE 59; RESP 16; TEMP 36.5; O2SAT 97
--- NOTE | 2020-12-31 05:57 | PHAR ---
Trospium 20 mg 1 tablet by mouth twice a day verified from RX bottle in pharmacy and sent back to floor.
[2020-12-31 06:47] LABS: Basophils Percent Auto 0.1 % (0.2-1.2); Hematocrit 41.7 % (42.0-52.0); Hemoglobin 14.2 g/dL (14.0-18.0); Immature Granulocyte Absolute 0.07 K/mm3 (0.00-0.031); Immature Granulocyte Percent A 0.5 % (0-0.5); Lymphocytes Absolute Auto 0.48 K/mm3 (0.9-3.2); Lymphocytes Percent Auto 3.6 % (18.3-44.2); Mean Corpuscular HGB Conc 34.1 g/dl (32-36); Mean Corpuscular Hemoglobin 29.6 pg (26-34); Mean Corpuscular Volume 87.1 fl (80-100); Monocytes Absolute Auto 0.1 K/mm3 (0.1-0.6); Neutrophils Absolute Auto 12.6 K/mm3 (1.3-6.7); Neutrophils Percent Auto 94.8 % (45.5-73.1); Platelet Count Result 159 k/mm3 (150-375); Red Blood Count 4.79 M/mm3 (4.6-6.20); Red Cell Distribution Width 12.2 % (11.5-14.5); White Blood Count 13.2 K/mm3 (4.5-10.0)
--- NOTE | 2020-12-31 07:38 | ADMGEN ---
This patient, Cristobal Miller, was admitted to 3 [facility] Surg Room 332-02. Patient/family oriented to hospital policies and general routines including ID bracelet, bed and alarms, visiting hours, pain management, procedures, bathroom and other care routines, personal items, smoking policy, room service/diet, and visiting hours. Information on how to activate the Rapid Response Team has been discussed. Patient/Family are encouraged to report perceived risks to care and to ask questions if they do not understand what they are told or what they should do. Patient was very lethargic at the start of the shift. Would appear to fall asleep and snore in between questions. After about 2.5 hours of rest, he was finally able to finish the admissions process. Hospital policy, medications, and health monitoring were all covered in that time. Patient appeared much more alert, oriented, and able to answer questions quickly.
[2020-12-31 08:00] VITALS: BP 126/54; PULSE 76; RESP 18; TEMP 36.3; O2SAT 96
[2020-12-31 08:38] VITALS: O2SAT 94
--- NOTE | 2020-12-31 08:38 | PM.IMPN ---
Progress Note: A&P Assessment and Plan (1) PADIMNI (acute kidney injury): Code(s): N17.9 - Acute kidney failure, unspecified Status: Acute (2) Acute UTI: Code(s): N39.0 - Urinary tract infection, site not specified Status: Acute (3) Sepsis: Code(s): A41.9 - Sepsis, unspecified organism Status: Acute (4) Essential (primary) hypertension: Code(s): I10 - Essential (primary) hypertension Status: Acute (5) BPH (benign prostatic hyperplasia): Code(s): N40.0 - Benign prostatic hyperplasia without lower urinary tract symptoms Status: Acute Additional Plan # sepsis; with fever, leukocytosis and tachycardia along with evidence of uti. recieved ivf resuscitation. iv antibioics for his uti. decrease ivf to 75 cc per hour. # UTI: urine culture sent. contineu ceftriaxone. # Padmini cr 1.4. baseline r 1. iv hydration . monitor renal functin. recheck this am. # lactic acidosis: recheck and monitor. yoly from above. lactic acid resolved with hdryation # htn: stable. home meds # hyperlpidemia: home meds # bph; home meds # Cad no hx of stents # diastolic dysfunction # lung nodule # DVT proph: lovenox # Full code. Subjective Date/time seen: 12/31/20 08:38 Interval history: more awake and alert, still feels a little weak, but better than yesterday, no fever, chills, no sob, cehst pain. Review of Systems Review of Systems: Narrative: - CONSTITUTIONAL: Denies weight loss, fever and chills. - HEENT: Denies changes in vision and hearing - RESPIRATORY: Denies SOB and cough. - CV: Denies palpitations and CP. - GI: Denies abdominal pain, nausea, vomiting and diarrhea. - : Denies dysuria and urinary frequency. - MSK: Denies myalgia and joint pain. - SKIN: Denies rash and pruritus. - NEUROLOGICAL: Denies headache and syncope. - PSYCHIATRIC: Denies recent changes in mood. Denies anxiety and depression. All systems reviewed & are unremarkable except as noted in HPI and below Constitutional: Constitutional: Reports fatigue and Reports weakness Neurologic: Reports weakness Endocrine: Endocrine: Reports fatigue Exam Narrative: Exam Narrative: GENERAL: The patient is well developed, not in acute distress HEENT: Nonicteric sclerae, PERRLA, EOMI. Oropharynx clear. Moist mucous membranes. Conjunctivae appear well perfused. CHEST: Chest wall is nontender. HEART: Regular rate and rhythm without murmur, rubs, or gallops LUNGS: Clear to auscultation bilaterally. no respiratory distress ABDOMEN: Soft, positive bowel sounds, non-tender, no organomegaly. SKIN: No rash, no excessive bruising, petechiae, or purpura. NEUROLOGIC: Cranial nerves II-XII intact, alert and oriented x 3, no gross motor deficits EXTREMITIES: no edema, cyanosis or clubbing Extrem: General: normal exam except as noted and no edema Objective Data Vital Signs Vital Signs: Vital Signs - 24 hr 12/30/20 19:47 12/30/20 21:00 12/30/20 21:57 Temperature 103 F H Pulse Rate 114 H 99 85 Respiratory Rate 34 H 22 H 20 Blood Pressure 122/66 152/74 H 141/76 H Pulse Oximetry 91 95 97 12/30/20 22:55 12/30/20 23:07 12/30/20 23:49 Temperature 98 F Pulse Rate 80 75 Respiratory Rate 16 18 Blood Pressure 129/67 150/86 H Pulse Oximetry 93 98 93 12/31/20 00:00 12/31/20 04:00 12/31/20 08:38 Temperature 97.9 F 97.7 F Pulse Rate 66 59 L Respiratory Rate 16 Blood Pressure 124/37 L 115/49 L Pulse Oximetry 96 97 94 Intake/Output Intake/Output: Intake & Output 12/28/20 12/29/20 12/30/20 12/31/20 23:59 23:59 23:59 23:59 Intake Total 2049 999 Balance 2049 1000 Meds/Results Medications: Active Medications Generic Name Dose Route Start Last Admin Trade Name Freq PRN Reason Stop Dose Admin Acetaminophen 650 mg 12/30/20 23:01 Acetaminophen 325 Mg Tablet PO Q4H PRN Mild Pain (1-3) or Fever Lactated Ringer's 1,000 mls @ 150 mls/hr 12/30/20 23:10 12/31/20 06:14 L
[2020-12-31 09:04] LABS: Anion Gap 8 mmol/L (8-16); Blood Urea Nitrogen 20 mg/dL (9-20); Calcium 8.6 mg/dL (8.4-10.2); Carbon Dioxide 23 mmol/L (22-30); Chloride 107 mmol/L (98-107); Estimated CRCL calculation 55 ml/min; Estimated Glomerular Filt Rate > 60; Glucose 153 mg/dL (75-110); Potassium 4.2 mmol/L (3.4-5.0); Sodium 138 mmol/L (137-145)
[2020-12-31] MEDS: TAMSULOSIN HCL 0.4 MG CAPSULE PO (12:26)
[2020-12-31] MEDS: FINASTERIDE 5 MG TABLET PO (12:27)
[2020-12-31] MEDS: amLODIPine BESYLATE 5 MG TABLET PO (12:27)
[2020-12-31] MEDS: ASPIRIN 325 MG TABLET PO (12:27)
[2020-12-31] MEDS: LACTATED RINGERS 1,000 ML 75 ML IV CONT (12:33)
[2020-12-31 14:00] VITALS: BP 126/54; PULSE 76; RESP 18; TEMP 36.3; O2SAT 96
[2020-12-31 21:51] VITALS: BP 131/45; PULSE 89; RESP 18; TEMP 36.3; O2SAT 97
[2021-01-01] MEDS: LACTATED RINGERS 1,000 ML 75 ML IV CONT (02:58)
[2021-01-01 06:00] VITALS: BP 118/48; PULSE 65; RESP 18; TEMP 36.2; O2SAT 98
[2021-01-01] MEDS: ASPIRIN 325 MG TABLET PO (09:07)
[2021-01-01] MEDS: amLODIPine BESYLATE 5 MG TABLET PO (09:07)
[2021-01-01] MEDS: TAMSULOSIN HCL 0.4 MG CAPSULE PO (09:07)
--- NOTE | 2021-01-01 13:26 | PM.DS ---
DS: Admitting Diagnosis Admitting Diagnosis Admitting Diagnosis: UTI DS: Discharge Diagnosis Discharge Diagnosis (1) Acute UTI: Code(s): N39.0 - Urinary tract infection, site not specified Status: Acute Assessment and Plan: Date of Admission 12/30/20 Date of Discharge 01/01/21 Mr. Miller is a 80yo M with hypertension, dyslipidemia, and BPH who presented to the ED for evaluation of fever, weakness, confusion. UA was grossly abnormal and he was started on IV ceftriaxone for UTI. Urine culture later grew Klebsiella pneumoniae prior to discharge. Cr was mildly elevated and returned to normal after IV hydration. He met sepsis criteria on arrival with leukocytosis, fever. Source is UTI. He received 3 doses of IV ceftriaxone and was discharged with oral cefdinir to complete the course. Patient was feeling well and was eager for discharge. He was hemodynamically stable for discharge 01/01/21 with oral antibiotics and instructions to follow up with his urologist and PCP. (2) ABHISHEK (acute kidney injury): Code(s): N17.9 - Acute kidney failure, unspecified Status: Resolved Assessment and Plan: Cr 1.4 on arrival; improved to 1.0 prior to discharge with IV hydration. (3) Sepsis: Qualifiers: Sepsis type: sepsis due to unspecified organism Sepsis acute organ dysfunction status: unspecified Qualified Code(s): A41.9 - Sepsis, unspecified organism Code(s): A41.9 - Sepsis, unspecified organism Status: Acute Assessment and Plan: Evident on arrival with leukocytosis and fever. Treated with abx as above. Blood cultures pending with no growth to date - will follow to final. (4) Essential (primary) hypertension: Code(s): I10 - Essential (primary) hypertension Status: Chronic Assessment and Plan: Continue his home amlodipine. (5) BPH (benign prostatic hyperplasia): Qualifiers: Lower urinary tract symptom presence: symptoms absent Qualified Code(s): N40.0 - Benign prostatic hyperplasia without lower urinary tract symptoms Code(s): N40.0 - Benign prostatic hyperplasia without lower urinary tract symptoms Status: Chronic Assessment and Plan: Follows with urology. Continue his home Flomax and Proscar. Voiding without difficulty on day of discharge. DS: Summary Hospital Course Hospital Course: See above. Time Spent with Patient Time attestation: Total time spent providing and/or coordinating discharge services: 35 minutes Exam Narrative: Exam Narrative: GENERAL: The patient is well developed, not in acute distress HEENT: Nonicteric sclerae, PERRLA, EOMI. Oropharynx clear. Moist mucous membranes. Conjunctivae appear well perfused. CHEST: Chest wall is nontender. HEART: Regular rate and rhythm without murmur, rubs, or gallops LUNGS: Clear to auscultation bilaterally. no respiratory distress ABDOMEN: Soft, positive bowel sounds, non-tender, no organomegaly. SKIN: No rash, no excessive bruising, petechiae, or purpura. NEUROLOGIC: Cranial nerves II-XII intact, alert and oriented x 3, no gross motor deficits EXTREMITIES: no edema, cyanosis or clubbing DS: Data Data Completed and Pending Labs on day of discharge: Last Vital Signs Temp 97.0 F L 01/01/21 14:00 Pulse 68 01/01/21 14:00 Resp 20 01/01/21 14:00 BP 128/52 L 01/01/21 14:00 Pulse Ox 98 01/01/21 14:00 ITS Impressions Chest X-Ray 12/30/20 20:32 IMPRESSION: No active disease Laboratory Tests 12/31/20 06:37 12/31/20 08:50 Discharge Plan Discharge Attending physician on discharge: Jyotsna Nguyen Consulting providers: Jesi Olson ; Luis Mosley ; Mayco Mary Discharging Clinician: Jesi Olson Antic
[2021-01-01 14:00] VITALS: BP 128/52; PULSE 68; RESP 20; TEMP 36.1; O2SAT 98
--- NOTE | 2021-01-05 13:07 | PC.NURSE ---
Blood cx are negative.
== END 2021-01-01 15:10 | disposition home or self-care (01) | DRG 872 ==
LOC: ANHED 23:09 → ANH3MEDSUR 23:37
PROVIDERS: Admitting Provider Internal Medicine; Emergency Provider Emergency Medicine; PCP Internal Medicine; Visit Provider Family Medicine
DX: A41.9 Sepsis, unspecified organism (principal); N17.9 Acute kidney failure, unspecified; N39.0 Urinary tract infection, site not specified; B96.1 Klebsiella pneumoniae [K. pneumoniae] as the cause of diseases classified elsewhere; N40.0 Benign prostatic hyperplasia without lower urinary tract symptoms; I25.10 Atherosclerotic heart disease of native coronary artery without angina pectoris; I11.9 Hypertensive heart disease without heart failure; E78.5 Hyperlipidemia, unspecified; J45.909 Unspecified asthma, uncomplicated; R91.1 Solitary pulmonary nodule; Z86.79 Personal history of other diseases of the circulatory system; Z87.891 Personal history of nicotine dependence
CPT/HCPCS: 36415; 71045; 80048; 80053; 81001; 83605; 85025; 87040; 87077; 87086; 87088; 87186; 93005; 96361; 96365; 97161; 97165; 99285; A9270; J0696; J1650; J7120

== ENCOUNTER 2022-09-14 14:11 | Inpatient (IN) | payer MEDICARE, SELFPAY ==
[2022-09-14] VITALS (19 sets, daily range): BP systolic 128–173; BP diastolic 62–93; PULSE 71–122; RESP 16–22; TEMP 36.1–38.1; O2SAT 93–96
--- NOTE | ~2022-09-14 | XR_ITS ---
EXAMINATION: XR chest 2V DATE: 09/14/2022 14:59 INDICATION: Cough and weakness. Fever. TECHNIQUE: Frontal and lateral views of the chest were obtained. COMPARISON: Chest single view 12/30/2020, chest CT 10/04/2017 FINDINGS: There is mild atelectasis at the lung bases. A calcified right lung nodule is consistent wi th old granulomatous disease. No pleural effusion or pneumothorax. The heart size is normal. There is a stent graft in abdominal aorta. There is mild chronic anterior wedging of multiple vertebral kiersten s. IMPRESSION: 1. Mild atelectasis at the lung bases. Reviewed, dictated and finalized at location A. FILLER
--- NOTE | 2022-09-14 14:18 | ECG_ITS ---
Measurements Intervals Hersey Rate: 119 P: 41 MD: 153 QRS: -14 QRSD: 82 T: 53 QT: 297 QTc: 419 Interpretive Statements SINUS TACHYCARDIA INDETERMINATE AXIS PATTERN CONSISTENT WITH PULMONARY DISEASE PROBABLE INFERIOR MYOCARDIAL INFARCTION , OLD COMPARED TO ECG 12/30/2020 19:50:42 NO SIGNIFICANT CHANGES Electronically Signed On 09-14-2022 15:34:06 PEN RIDER by James Perez M.D.
[2022-09-14 14:36] LABS: Basophils Percent Auto 0.2 % (0.2-1.2); Eosinophils Absolute Auto 0.1 K/mm3 (0-0.3); Eosinophils Percent Auto 0.6 % (0-4.4); Hematocrit 46.6 % (42.0-52.0); Hemoglobin 15.8 g/dL (14.0-18.0); Immature Granulocyte Absolute 0.06 K/mm3 (0.00-0.031); Immature Granulocyte Percent A 0.6 % (0-0.5); Lymphocytes Absolute Auto 0.57 K/mm3 (0.9-3.2); Lymphocytes Percent Auto 5.2 % (18.3-44.2); Mean Corpuscular HGB Conc 33.9 g/dl (32-36); Mean Corpuscular Hemoglobin 30.3 pg (26-34); Mean Corpuscular Volume 89.3 fl (80-100); Monocytes Absolute Auto 0.8 K/mm3 (0.1-0.6); Monocytes Percent Auto 7.3 % (2.6-8.5); Neutrophils Absolute Auto 9.4 K/mm3 (1.3-6.7); Neutrophils Percent Auto 86.1 % (45.5-73.1); Platelet Count Result 171 k/mm3 (150-375); Red Blood Count 5.22 M/mm3 (4.6-6.20); Red Cell Distribution Width 12.8 % (11.5-14.5); White Blood Count 10.9 K/mm3 (4.5-10.0)
[2022-09-14 14:47] LABS: Alanine Aminotransferase 59 U/L (6-50); Albumin Level 4.3 g/dL (3.5-5.1); Alkaline Phosphatase 74 U/L (38-126); Anion Gap 5 mmol/L (8-16); Aspartate Amino Transferase 43 U/L (17-59); Bilirubin,Total 1.3 mg/dL (0.2-1.3); Blood Urea Nitrogen 16 mg/dL (9-20); Calcium 8.5 mg/dL (8.4-10.2); Carbon Dioxide 30 mmol/L (22-30); Chloride 103 mmol/L (98-107); Estimated CRCL calculation 47 ml/min; Estimated Glomerular Filt Rate 58; Glucose 92 mg/dL (65-110); Sodium 138 mmol/L (137-145)
--- NOTE | 2022-09-14 17:02 | ED.WEAKNESS ---
HPI - Weakness General Chief complaint: Weakness Stated complaint: weakness Time Seen by Provider: 09/14/22 16:21 History of Present Illness HPI Narrative: Patient is an 82-year-old male with a history of BPH, hypertension, hyperlipidemia presenting with weakness. Patient states that for the last several days he has been generally weak. States he has had difficulty taking care of himself at home as he lives with his elderly . States he has chronic urinary incontinence. He denies headache, fevers or chills, chest pain, shortness of breath, cough, abdominal pain, nausea or vomiting, diarrhea, leg swelling. He is unsure about dysuria. Related Data Home Medications Medication Instructions Recorded Confirmed aspirin 325 mg tablet 325 mg PO DAILY 02/06/20 09/14/22 amlodipine 5 mg tablet 5 mg PO DAILY 09/14/22 09/14/22 Allergies Allergy/AdvReac Type Severity Reaction Status Date / Time gabapentin Allergy Severe Unknown Verified 09/14/22 21:18 Penicillins Allergy Severe hives Verified 09/14/22 21:18 Review of Systems Review of Systems: All systems reviewed & are unremarkable except as noted in HPI and below PMFSH Past Medical History Medical History (Updated 09/15/22 @ 07:51 by Nelia Hopper MD) Benign prostate hyperplasia Chronic gingival disease Coronary atherosclerosis Diastolic dysfunction Noted on echocardiogram August 2016 with EF of 60% Essential (primary) hypertension History of BPH Hx of deep venous thrombosis Hyperlipidemia Lung nodule Scrotal sebaceous cyst Surgical History Surgical History (Updated 09/14/22 @ 22:35 by Mirtha Washington NP) Abdominal aortic aneurysm 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 He is retired from being an excavator and farming. He has his daughter Edwige Sharma listed as a contact. Primary care physician: Dr. Garcia Donato Code status: Full code Smoking packs per day: 1 Smoking cigarettes per day: 20.0 Years smoked: 50 Smoking pack-years: 50.00 Smoking status: Former smoker Tobacco type: cigarettes Second hand tobacco smoke exposure: Yes Smoking end date: 01/14/13 Alcohol intake: never Substance use: current Substance use type: does not use Lack of Transportation: No Lack of Food: Never True Current Housing: I Have Housing Concerned About Future Housing: No Difficulty Paying Gas/Electric Bills: No Difficulty Paying for Meds: No Currently Unemployed: No Education: High School Diploma/GED Difficulty w/ Childcare or Family Care: No Living arrangements: with family Additional living arrangements comments: He lives in [place] with his of 56 years. Gender identity (if verbalized by the patient): Male Spiritual care concerns: No Exam Narrative: GENERAL: Elderly male sitting in bed in no acute distress, cooperative and pleasant HEAD: Normocephalic, atraumatic. EYES: PERRLA and EOMI. ENT: Nares clear, no rhinorrhea or epistaxis. Mucous membranes dry NECK: Supple. CHEST: Clear to auscultation. No respiratory distress. HEART: Tachycardic, regular rhythm ABDOMEN: Soft, nontender, nondistended EXTREMITIES: Normal range of motion. No edema. Multiple healed scars, appear to be incisional, on right leg SKIN: Warm, dry, no rash. NEURO: No focal deficits. PSYCH: Normal mood and affect. Course Vital Signs
[2022-09-14 17:08] LABS: Mucus Urine Rare /lpf; Squamous Epithelial Cell Urine Rare /hpf (Few); WBC Urine 0-3 /hpf
[2022-09-14 17:10] LABS: Influenza A QL RT-PCR Negative (Negative); Influenza B QL RT-PCR Negative (Negative); SARS-CoV-2 RNA PCR Positive
[2022-09-14 17:13] LABS: Appearance Urine Clear (Clear); Bilirubin Urine Negative (Negative); Blood Urine Trace-intact (Negative); Color Urine Yellow (Yellow); Glucose Urine UA Negative (Negative); Ketones Urine Trace mg/dL (Negative); Leukocyte Esterase Ur Negative LEU/UL (Negative); Nitrate Urine Negative (Negative); Protein Urine Negative (Negative); Specific Grav Ur 1.015 (1.001-1.035); Urobilinogen Urine 0.2 mg/dL (<2.0)
[2022-09-14 17:14] LABS: Add Urine Microscopic? YES
[2022-09-14] MEDS: SODIUM CHLORIDE 0.9% IV 1,000 ML 999 ML IV CONT ×2 (17:45→18:47)
[2022-09-14 18:21] LABS: Lactic Acid Reflex 2.5 mmol/L (0.7-2.0)
--- NOTE | 2022-09-14 19:15 | PM.IMHP ---
H&P: HPI History of Present Illness Date/Time: 09/14/22 19:15 Chief Complaint: Weakness Narrative: This is an 82-year-old male patient who helps to take care of his who is undergoing chemotherapy for her treatment. The patient has a history of BPH, hypertension, and hyperlipidemia. The patient presented to the emergency room with complaints of weakness. He stated over the last couple days he has just been more weak than usual. He does have chronic urinary incontinence. He denies any fever chills or cough. No complaints of chest pain no nausea vomiting or diarrhea. The patient stated he just started feeling weak over the last couple days. He feels very fatigued. The patient had a 38.1 ? C temperature. The patient initially had tachycardia most likely due to the fever. The patient had a slightly elevated white count of 10.9. His lactic initially was 2.5. Urine is negative any is positive for COVID. Chest x-ray was read as mild atelectasis at the lung bases. Initially the patient was treated for pneumonia in the emergency room and he was started on vancomycin and cefepime. He was given Tylenol IV in the emergency room as well as 2 L of fluid. The patient is being admitted to observation status on the date of service of 09/14/2022. Review of Systems Review of Systems: See HPI All systems reviewed & are unremarkable except as noted in HPI and below Constitutional: Constitutional: Reports as per HPI and Reports no additional constitutional complaints Eyes: Eyes: Reports as per HPI and Reports no additional eye complaints ENT: Reports system reviewed and no additional complaints, except as documented and Reports Normal hearing present Cardiovascular: Cardiovascular: Reports no additional cardiovascular complaints Respiratory: Respiratory: Reports no additional respiratory complaints and Reports no additional respiratory complaints Gastrointestinal: Gastrointestinal: Reports as per HPI and Reports no additional gastrointestinal complaints Musculoskeletal: Musculoskeletal: Reports no additional musculoskeletal complaints Integumentary/Breasts: Skin/Breast: Reports system reviewed and no additional complaints, except as docu and Reports as per HPI Neurologic: Reports system reviewed and no additional complaints, except as documented, Reports as per HPI and Reports Normal hearing present Psychiatric: Psychiatric: Reports no additional psychiatric complaints and Reports as per HPI Endocrine: Endocrine: Reports no additional endocrine complaints Hematologic/Lymphatic: Hematologic/Lymphatic: Reports no additional hematologic/lymphatic complaints Allergic/Immunologic: Allergic/Immunologic: Reports no additional allergic/immunologic complaints PMFSH Past Medical History Medical History (Updated 09/14/22 @ 22:35 by Mirtha Washington NP) Benign prostate hyperplasia Chronic gingival disease Coronary atherosclerosis Diastolic dysfunction Noted on echocardiogram August 2016 with EF of 60% Essential (primary) hypertension History of BPH Hx of deep venous thrombosis Hyperlipidemia Lung nodule Scrotal sebaceous cyst Surgical History Surgical History (Updated 09/14/22 @ 22:35 by Mirtha Washington NP) Abdominal aortic aneurysm 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 He is retired from being an excavator and farming. He
[2022-09-14 20:49] LABS: Reflex Lactic Acid Yes or No Add Lactic
--- NOTE | 2022-09-14 20:51 | ADMGEN ---
This patient, Cristobal Miller, was admitted to 3 [facility] Surg Room 328-01. Patient/family oriented to hospital policies and general routines including ID bracelet, bed and alarms, visiting hours, pain management, procedures, bathroom and other care routines, personal items, smoking policy, room service/diet, and visiting hours. Information on how to activate the Rapid Response Team has been discussed. Patient/Family are encouraged to report perceived risks to care and to ask questions if they do not understand what they are told or what they should do.
[2022-09-14 22:36] LABS: Lactic Acid 1.2 mmol/L (0.7-2.0)
[2022-09-15 06:00] VITALS: BP 118/60; PULSE 88; RESP 20; TEMP 36.2; O2SAT 95
[2022-09-15 07:44] LABS: Basophils Percent Auto 0.3 % (0.2-1.2); Eosinophils Percent Auto 0.3 % (0-4.4); Hematocrit 38.9 % (42.0-52.0); Hemoglobin 13.2 g/dL (14.0-18.0); Immature Granulocyte Absolute 0.05 K/mm3 (0.00-0.031); Immature Granulocyte Percent A 0.6 % (0-0.5); Lymphocytes Absolute Auto 0.81 K/mm3 (0.9-3.2); Lymphocytes Percent Auto 10.5 % (18.3-44.2); Mean Corpuscular HGB Conc 33.9 g/dl (32-36); Mean Corpuscular Hemoglobin 29.9 pg (26-34); Mean Platelet Volume 10.1 fl (7.4-10.4); Monocytes Absolute Auto 0.9 K/mm3 (0.1-0.6); Monocytes Percent Auto 11.9 % (2.6-8.5); Neutrophils Absolute Auto 5.9 K/mm3 (1.3-6.7); Neutrophils Percent Auto 76.4 % (45.5-73.1); Platelet Count Result 145 k/mm3 (150-375); Red Blood Count 4.42 M/mm3 (4.6-6.20); Red Cell Distribution Width 12.8 % (11.5-14.5); White Blood Count 7.8 K/mm3 (4.5-10.0)
--- NOTE | 2022-09-15 07:49 | PM.IMPN ---
Progress Note: A&P Assessment and Plan (1) Sepsis: Code(s): A41.9 - Sepsis, unspecified organism Status: Acute Assessment and Plan: Patient has a fever, leukocytosis, patient is short of breath and cough Likely resulting from pneumonia Urinalysis unremarkable Patient denies nausea vomiting diarrhea dysuria Follow-up blood culture, IV fluid (2) Community acquired pneumonia of both lower lobes: Code(s): J18.9 - Pneumonia, unspecified organism Status: Acute Assessment and Plan: Chest x-ray suggests lateral lobe pneumonia Patient's leukocytosis for fever Possible better pneumonia superimposed with COVID-19 infection Started vancomycin cefepime IV in the ED, will continue Will hold antiviral medication, patient does have hypoxemia. Chest x-ray does not support COVID-19 infection (3) COVID-19: Code(s): U07.1 - COVID-19 Status: Acute Assessment and Plan: Isolation per protocol (4) Essential (primary) hypertension: Code(s): I10 - Essential (primary) hypertension Status: Chronic Assessment and Plan: Continue amlodipine 5 mg daily p.o. (5) BPH (benign prostatic hyperplasia): Qualifiers: Lower urinary tract symptom presence: symptoms absent Qualified Code(s): N40.0 - Benign prostatic hyperplasia without lower urinary tract symptoms Code(s): N40.0 - Benign prostatic hyperplasia without lower urinary tract symptoms Status: Chronic (6) Acute bronchiolitis: Code(s): J21.9 - Acute bronchiolitis, unspecified Status: Acute Subjective Date/time seen: 09/15/22 07:49 I saw and examined patient today. Patient still has general weakness, short of breath. Denies abdominal pain, nausea vomiting diarrhea or dysuria. Patient has some cough. Exam Narrative: GENERAL: Pleasant, in no acute distress. Well-nourished. Obesity - EYES: EOMI. Anicteric. - HENT: Moist mucous membranes. - LUNGS: Coarse breath sound over left lower lobe, no wheezing, rhonchi, or rales. - CARDIOVASCULAR: Regular rate and rhythm. No murmur. No JVD. - ABDOMEN: Soft, non-tender and non-distended. No palpable masses. - EXTREMITIES: No edema. Peripheral pulses 2+. Non-tender. - NEUROLOGIC: No focal neurological deficits. CN II-XII grossly intact. - PSYCHIATRIC: Awake, Alert and oriented x 3. Appropriate mood and affect. - SKIN: No rashes or lesions. Warm. - LYMPH: No cervical lymphadenopathy. Objective Data Vital Signs Vital Signs: Vital Signs - 24 hr 09/14/22 14:16 09/14/22 16:34 09/14/22 16:45 Temperature 100.6 F H Pulse Rate 122 H 121 H 114 H Respiratory Rate 20 16 20 Blood Pressure 128/72 Pulse Oximetry 96 Oxygen Delivery Room Air 09/14/22 16:46 09/14/22 17:00 09/14/22 17:16 Temperature Pulse Rate 114 H 114 H 112 H Respiratory Rate 22 H 19 22 H Blood Pressure 173/87 H Pulse Oximetry Oxygen Delivery 09/14/22 17:42 09/14/22 17:44 09/14/22 17:45 Temperature Pulse Rate 118 H 117 H 118 H Respiratory Rate 21 H 22 H 22 H Blood Pressure 160/93 H Pulse Oximetry Oxygen Delivery 09/14/22 17:46 09/14/22 18:00 09/14/22 18:14 Temperature 99.9 F H Pulse Rate 118 H 106 H Respiratory Rate 18 20 Blood Pressure 168/87 H Pulse Oximetry Oxygen Delivery 09/14/22 18:28 09/14/22 18:38 09/14/22 18:45 Temperature Pulse Rate 106 H 111 H 104 H Respiratory Rate 19 18 20 Blood Pressure 148/70 H Pulse Oximetry 95 Oxygen Delivery 09/14/22 19:00 09/14/22 19:01 09/14/22 20:54 Temperature Pulse Rate 97 95 95 Respiratory Rate 17 17 17 Blood Pressure 128/62 Pulse Oximetry 95 95 Oxygen Delivery Room Air 09/14/22 22:00 09/15/22 06:00 Temperature 96.9 F L 97.2 F L Pulse Rate 71 88 Respiratory Rate 20 20 Blood Pressure 118/60 Pulse Oximetry 93 95 Oxygen Delivery Intake/Output Intake/Output: Intake & Output 09/12/22 09/13/22 09/14/22 09/15/22 23:59 23
[2022-09-15 07:52] LABS: Lactic Acid Reflex 1.3 mmol/L (0.7-2.0)
[2022-09-15 07:56] LABS: Alanine Aminotransferase 47 U/L (6-50); Albumin Level 3.4 g/dL (3.5-5.1); Alkaline Phosphatase 53 U/L (38-126); Anion Gap 3 mmol/L (8-16); Aspartate Amino Transferase 38 U/L (17-59); Bilirubin,Total 1.4 mg/dL (0.2-1.3); Blood Urea Nitrogen 17 mg/dL (9-20); Calcium 7.7 mg/dL (8.4-10.2); Carbon Dioxide 27 mmol/L (22-30); Chloride 106 mmol/L (98-107); Estimated CRCL calculation 52 ml/min; Estimated Glomerular Filt Rate > 60; Glucose 96 mg/dL (65-110); Lactate Dehydrogenase 186 U/L (120-246); Magnesium 1.9 mg/dL (1.6-2.3); Potassium 3.8 mmol/L (3.4-5.0); Sodium 136 mmol/L (137-145)
[2022-09-15] MEDS: ENOXAPARIN 40 MG/0.4 ML SYRINGE SUB-Q (09:26)
[2022-09-15] MEDS: ASPIRIN 325 MG TABLET PO (09:26)
[2022-09-15] MEDS: guaiFENesin 12 HR 600 MG TABCR 1200 MG PO ×2 (09:26→20:09)
[2022-09-15] MEDS: FINASTERIDE 5 MG TABLET PO (09:26)
[2022-09-15] MEDS: amLODIPine BESYLATE 5 MG TABLET PO (09:26)
[2022-09-15] MEDS: ATORVASTATIN 10 MG TABLET PO (09:26)
[2022-09-15] MEDS: TAMSULOSIN HCL 0.4 MG CAPSULE PO (09:26)
[2022-09-15 14:00] VITALS: BP 135/59; PULSE 78; RESP 18; TEMP 37.2; O2SAT 93
[2022-09-15 20:00] VITALS: PULSE 78; RESP 18; O2SAT 93
[2022-09-15 22:00] VITALS: BP 152/60; PULSE 80; RESP 18; TEMP 36.6; O2SAT 94
[2022-09-16 05:30] VITALS: BP 132/46; PULSE 74; RESP 18; TEMP 36.1; O2SAT 94
[2022-09-16 06:31] LABS: Estimated CRCL calculation 56 ml/min; Estimated Glomerular Filt Rate > 60
[2022-09-16] MEDS: amLODIPine BESYLATE 5 MG TABLET PO (08:14)
[2022-09-16] MEDS: ENOXAPARIN 40 MG/0.4 ML SYRINGE SUB-Q (08:14)
[2022-09-16] MEDS: ASPIRIN 325 MG TABLET PO (08:14)
[2022-09-16] MEDS: ATORVASTATIN 10 MG TABLET PO (08:14)
[2022-09-16] MEDS: guaiFENesin 12 HR 600 MG TABCR 1200 MG PO (08:15)
[2022-09-16] MEDS: FINASTERIDE 5 MG TABLET PO (08:15)
[2022-09-16] MEDS: TAMSULOSIN HCL 0.4 MG CAPSULE PO (08:15)
--- NOTE | 2022-09-16 12:55 | PM.DS ---
DS: Admitting Diagnosis Discharge Date today Admitting Diagnosis community-acquired pneumonia, COVID infection, sepsis, DS: Discharge Diagnosis Discharge Diagnosis (1) Community acquired pneumonia of both lower lobes: Code(s): J18.9 - Pneumonia, unspecified organism Status: Acute (2) Sepsis: Code(s): A41.9 - Sepsis, unspecified organism Status: Acute (3) COVID-19: Code(s): U07.1 - COVID-19 Status: Acute DS: Summary Hospital Course Reason for hospitalization: shortness breath, fever, general weakness Hospital Course: This is an 82-year-old male patient who helps to take care of his who is undergoing chemotherapy for her treatment.? The patient has a history of BPH, hypertension, and hyperlipidemia.? The patient presented to the emergency room with complaints of weakness.? He stated over the last couple days he has just been more weak than usual.? He does have chronic urinary incontinence.? He denies any fever chills or cough.? No complaints of chest pain no nausea vomiting or diarrhea.? The patient stated he just started feeling weak over the last couple days.? He feels very fatigued.? The patient had a 38.1 ? C temperature.? The patient initially had tachycardia most likely due to the fever.? The patient had a slightly elevated white count of 10.9.? His lactic initially was 2.5.? Urine is negative any is positive for COVID.? Chest x-ray was read as mild atelectasis at the lung bases, suggesting that leftlower lobe pneumonia.? Initially the patient was treated for pneumonia in the emergency room and he was started on vancomycin and cefepime.? He was given Tylenol IV in the emergency room as well as 2 L of fluid.? The patient is being admitted to observation status on the date of service of 09/14/2022. during hospitalization, patient continued to receive treatment of vancomycin cefepime. blood cultures have no growth so far. patient feels shortness of breaths resolves. Patient is afebrile, leukocytosis resolved, patient is hemodynamically stable. patient will be discharged home today with his doxycycline of Omnicef for 5 more days. patient will see primary care doctor in 1 week. Hospital course uneventful. Status at Discharge Cognitive/behavioral status at discharge: stable Time Spent with Patient Time attestation: Total time spent providing and/or coordinating discharge services: 40 Exam Narrative: GENERAL:? Pleasant,? in no acute distress. Well-nourished.? Obesity - EYES: EOMI. Anicteric. - HENT: Moist mucous membranes. - LUNGS:?clear b/l lungs, no wheezing, rhonchi, or rales. - CARDIOVASCULAR: Regular rate and rhythm. No murmur. No JVD. - ABDOMEN: Soft, non-tender and non-distended. No palpable masses. - EXTREMITIES: No edema. Peripheral pulses 2+. Non-tender. - NEUROLOGIC: No focal neurological deficits. CN II-XII grossly intact. - PSYCHIATRIC: Awake, Alert and oriented x 3. Appropriate mood and affect. - SKIN: No rashes or lesions. Warm. - LYMPH: No cervical lymphadenopathy. DS: Data Data Completed and Pending Pending studies at discharge: blood culture Labs on day of discharge: Labs from last 24 hours 09/16/22 06:00 Creatinine 1.00 Estim Creat Clear Calc 56 Estimated GFR > 60 Preliminary micro results at discharge 09/14/22 17:45 Blood Culture - Preliminary Blood 09/14/22 17:45 Blood Culture - Preliminary Blood Discharge Plan Discharge Attending physician on discharge: Nelia Hopper Discharging Clinician: Nelia Hopper Anticipated Discharge Date/Time: 09/16/22 12:52 Patient Disposition: Home, Self-Care Activity: as tolerated Diet: as tolerated Patient Instructions: Antibiotic Form, Aspirin (By mouth), Pain Management in Older Adults (DC) Stand Alone Forms: General Discharge Information Follow-up/Referrals: Yu Benson MD [Primary Care Provider] - Discharge Medications: New doxycycline monohydrate
== END 2022-09-16 15:52 | disposition home or self-care (01) | DRG 871 ==
LOC: ANHED 17:33 → ANH3MEDSUR 18:58
PROVIDERS: Emergency Medicine; Nurse Practitioner; Physician Assistant; Admitting Provider Internal Medicine; Emergency Provider Emergency Medicine; PCP Internal Medicine; Visit Provider Hospitalist
DX: A41.9 Sepsis, unspecified organism (principal); J18.9 Pneumonia, unspecified organism; U07.1 COVID-19; R09.02 Hypoxemia; N40.0 Benign prostatic hyperplasia without lower urinary tract symptoms; E78.5 Hyperlipidemia, unspecified; I10 Essential (primary) hypertension; I25.10 Atherosclerotic heart disease of native coronary artery without angina pectoris; R32 Unspecified urinary incontinence; J45.909 Unspecified asthma, uncomplicated; Z86.718 Personal history of other venous thrombosis and embolism; Z98.49 Cataract extraction status, unspecified eye; Z95.5 Presence of coronary angioplasty implant and graft; Z95.1 Presence of aortocoronary bypass graft; Z87.891 Personal history of nicotine dependence
CPT/HCPCS: 36415; 71046; 80053; 81001; 82565; 83605; 83615; 83735; 84443; 85025; 87040; 87636; 93005; 96361; 96365; 96367; 96372; 96375; 97110; 97161; 97165; 97530; 99285; A9270; G0378; J0131; J0692; J1650; J3370; J7030

== ENCOUNTER 2023-01-19 03:24 | Inpatient (IN) | payer MEDICARE, SELFPAY ==
[2023-01-19] VITALS (8 sets, daily range): BP systolic 118–144; BP diastolic 40–70; PULSE 72–94; RESP 15–20; TEMP 36.2–36.9; O2SAT 93–99; BMI 31.8
--- NOTE | 2023-01-19 03:40 | ED.GENADULT ---
HPI - General Adult General Chief complaint: Fall Stated complaint: fall Time Seen by Provider: 01/19/23 03:33 History of Present Illness HPI narrative: 82-year-old male presented to the emergency department for evaluation for increased generalized weakness. Patient states he does have a frequent history of urinary tract infections and does have urinary retention and does straight cath himself daily. Patient reports he was attempting to get out of his recliner and missed his footing and caused himself to slide down on the floor. Patient denied any pain or injury from this. Patient states he just felt too weak to get off the floor. Patient does live at home with his but he stated that she would not be able to assist him off the floor. Related Data Home Medications Medication Instructions Recorded Confirmed aspirin 325 mg tablet 325 mg PO DAILY 02/06/20 12/27/22 amlodipine 5 mg tablet 5 mg PO DAILY 09/14/22 12/27/22 Allergies Allergy/AdvReac Type Severity Reaction Status Date / Time gabapentin Allergy Severe Unknown Verified 01/19/23 03:40 Penicillins Allergy Severe hives Verified 01/19/23 03:40 Review of Systems Review of Systems: All systems reviewed & are unremarkable except as noted in HPI and below PMFSH Past Medical History Medical History (Updated 01/19/23 @ 05:45 by Luis Angel Kamara MD) Benign prostate hyperplasia Chronic gingival disease Coronary atherosclerosis Diastolic dysfunction Noted on echocardiogram August 2016 with EF of 60% Essential (primary) hypertension History of BPH Hx of deep venous thrombosis Hyperlipidemia Lung nodule Scrotal sebaceous cyst Surgical History Surgical History (Updated 09/14/22 @ 22:35 by Mirtha Washington NP) Abdominal aortic aneurysm 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 He is retired from being an excavator and farming. He has his daughter Edwige Sharma listed as a contact. Primary care physician: Dr. Garcia Donato Code status: Full code Smoking packs per day: 1 Smoking cigarettes per day: 20.0 Years smoked: 50 Smoking pack-years: 50.00 Smoking status: Former smoker Tobacco type: cigarettes Second hand tobacco smoke exposure: Yes Smoking end date: 01/14/13 Alcohol intake: current Alcohol use details: 2 drinks a month Substance use: current Substance use type: does not use Lack of Transportation: No Lack of Food: Never True Current Housing: I Have Housing Concerned About Future Housing: No Difficulty Paying Gas/Electric Bills: No Difficulty Paying for Meds: No Currently Unemployed: No Education: High School Diploma/GED Difficulty w/ Childcare or Family Care: No Living arrangements: with family Additional living arrangements comments: He lives in [place] with his of 56 years. Gender identity (if verbalized by the patient): Male Spiritual care concerns: No Exam Narrative: APPEARANCE: Well appearing, no pain, no distress, well-nourished. HEAD: normocephalic, atraumatic. EYES: PERRLA/EOMI, conjunctivae clear. NOSE: Normal no drainage EARS:TMS clear with good light reflex. THROAT: Pharynx clear, no exudate. NECK: Supple. No adenopathy, no masses. RESPIRATORY: Airway patent, respirations nonlabored. Clear to auscultation bilaterally, no rales, rhonchi, wheezing. CARDIOVASCULAR: Regular
[2023-01-19 04:06] LABS: Basophils Percent Auto 0.2 % (0.2-1.2); Eosinophils Percent Auto 0.1 % (0-4.4); Hematocrit 43.5 % (42.0-52.0); Hemoglobin 14.9 g/dL (14.0-18.0); Immature Granulocyte Percent A 0.6 % (0-0.5); Lymphocytes Absolute Auto 0.72 K/mm3 (0.9-3.2); Mean Corpuscular HGB Conc 34.3 g/dl (32-36); Mean Corpuscular Hemoglobin 30.2 pg (26-34); Mean Corpuscular Volume 88.1 fl (80-100); Mean Platelet Volume 10.3 fl (7.4-10.4); Monocytes Absolute Auto 1.3 K/mm3 (0.1-0.6); Monocytes Percent Auto 7.1 % (2.6-8.5); Neutrophils Absolute Auto 15.7 K/mm3 (1.3-6.7); Platelet Count Result 160 k/mm3 (150-375); Red Blood Count 4.94 M/mm3 (4.6-6.20); Red Cell Distribution Width 12.9 % (11.5-14.5); White Blood Count 17.8 K/mm3 (4.5-10.0)
[2023-01-19 04:19] LABS: Alanine Aminotransferase 43 U/L (6-50); Albumin Level 3.8 g/dL (3.5-5.1); Alkaline Phosphatase 72 U/L (38-126); Anion Gap 8 mmol/L (8-16); Aspartate Amino Transferase 35 U/L (17-59); Bilirubin,Total 1.6 mg/dL (0.2-1.3); Blood Urea Nitrogen 20 mg/dL (9-20); Calcium 8.3 mg/dL (8.4-10.2); Carbon Dioxide 25 mmol/L (22-30); Chloride 106 mmol/L (98-107); Creatine Kinase 120 U/L (55-170); Estimated CRCL calculation 48 ml/min; Estimated Glomerular Filt Rate 58; Glucose 133 mg/dL (65-110); Sodium 139 mmol/L (137-145)
[2023-01-19 04:24] LABS: Appearance Urine Clear (Clear); Bacteria Urine 4+ /hpf; Bilirubin Urine Negative (Negative); Blood Urine 2+ (Negative); Color Urine Yellow (Yellow); Glucose Urine UA Negative (Negative); Ketones Urine Trace mg/dL (Negative); Leukocyte Esterase Ur 1+ LEU/UL (Negative); Need Manual Microscopic Reviewed; Nitrate Urine Positive (Negative); Non Pathogenic Casts 0-2; Protein Urine Trace mg/dL (Negative); RBC Urine 21-50 /hpf (0-2); Specific Grav Ur 1.024 (1.001-1.035); Squamous Epithelial Cell Urine None seen /hpf (Few); Urobilinogen Urine 0.2 mg/dL (<2.0); WBC Urine 21-50 /hpf; pH Urine 5.5 (5.0-9.0)
[2023-01-19 04:26] LABS: Add Urine Microscopic? YES
[2023-01-19] MEDS: SODIUM CHLORIDE 0.9% IV 1,000 ML 999 ML IV CONT (04:38)
--- NOTE | 2023-01-19 06:47 | ADMGEN ---
This patient, Cristobal Miller, was admitted to 2 Medical Room 255-. Patient/family oriented to hospital policies and general routines including ID bracelet, bed and alarms, visiting hours, pain management, procedures, bathroom and other care routines, personal items, smoking policy, room service/diet, and visiting hours. Information on how to activate the Rapid Response Team has been discussed. Patient/Family are encouraged to report perceived risks to care and to ask questions if they do not understand what they are told or what they should do.
--- NOTE | 2023-01-19 10:02 | PM.IMHP ---
H&P: HPI History of Present Illness Date/Time: 01/19/23 10:02 Chief Complaint: Fall Narrative: Date of service: 01/19/2023 Cristobal Miller is an 82-year-old male with a history of BPH, CAD, hypertension, hyperlipidemia, DVT who presented to the emergency department on 01/19/2023 after suffering a fall at home. The patient stated that he was in his usual state of health yesterday. He was taking a nap in his recliner. He then got up and fell to the floor. He states he cannot recall the exact details of his fall but he believes that he simply lowered himself to the ground as he was feeling very weak. He does not believe he hit his head and he did not lose consciousness. He denies any pain in his back, buttocks, hips, arms. Fortunately he did not sustain any injuries or abrasions. He was not able to get himself up. He called for his who was asleep down the cordon and could not hear his call for help. He reports he was on the ground for about 2 hours trying to get up and eventually used his cell phone to call for EMS assistance. The patient states that he thinks that he has a bladder infection for the past week or so. When asked about what symptoms he has been having, he stated that EMS informed him they thought he had a UTI due to strong malodorous urine. He then goes on to state that for about a week he has had ?trouble peeing? with hesitancy, dribbling, frequency. Denies dysuria or hematuria. No fever or chills. He does do intermittent self catheterizations, only when he feels that he is not able to empty his bladder. States the last time he required self catheterization was about a week ago. He also indicates issues with unsteadiness and weakness. He has a walker and cane at home, however he does not use these as he feels this makes him more unsteady. It sounds as though he is having frequent falls, though he is unable to quantify how often. He also complains of issues with dizziness and vertigo, stating he takes medication for this which helps his symptoms. Stated he was not dizzy or lightheaded at the time of his fall. He denies chest pain, shortness of breath, nausea, or vomiting. 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 He is retired from being an excavator and farming. He designates his , Jaelyn or his daughter, Edwige as his surrogate decision maker Primary care physician: Dr. Bradford Mary Code status: Full code Smoking packs per day: 1.5 Smoking cigarettes per day: 30.0 Years smoked: 50 Smoking pack-years: 75.00 Smoking status: Former smoker Second hand tobacco smoke exposure: Yes Alcohol intake: current Alcohol use details: Rare alcohol intake Substance use type: does not use
[2023-01-19] MEDS: TAMSULOSIN HCL 0.4 MG CAPSULE PO (12:04)
[2023-01-19] MEDS: ATORVASTATIN 10 MG TABLET PO (12:04)
[2023-01-19] MEDS: ASPIRIN 325 MG TABLET PO (12:04)
[2023-01-20 05:55] LABS: Hematocrit 41.4 % (42.0-52.0); Hemoglobin 13.8 g/dL (14.0-18.0); Mean Corpuscular HGB Conc 33.3 g/dl (32-36); Mean Corpuscular Hemoglobin 29.4 pg (26-34); Mean Corpuscular Volume 88.3 fl (80-100); Mean Platelet Volume 10.4 fl (7.4-10.4); Platelet Count Result 146 k/mm3 (150-375); Red Blood Count 4.69 M/mm3 (4.6-6.20); Red Cell Distribution Width 12.7 % (11.5-14.5); White Blood Count 12.8 K/mm3 (4.5-10.0)
[2023-01-20 06:00] VITALS: BP 159/71; PULSE 87; RESP 16; TEMP 37.3; O2SAT 93
[2023-01-20 06:05] LABS: Anion Gap 3 mmol/L (8-16); Blood Urea Nitrogen 16 mg/dL (9-20); Calcium 7.7 mg/dL (8.4-10.2); Carbon Dioxide 27 mmol/L (22-30); Chloride 106 mmol/L (98-107); Estimated CRCL calculation 55 ml/min; Estimated Glomerular Filt Rate > 60; Glucose 104 mg/dL (65-110); Potassium 3.9 mmol/L (3.4-5.0); Sodium 136 mmol/L (137-145)
[2023-01-20 08:11] LABS: Alanine Aminotransferase 31 U/L (6-50); Albumin Level 3.3 g/dL (3.5-5.1); Alkaline Phosphatase 55 U/L (38-126); Aspartate Amino Transferase 29 U/L (17-59); Bilirubin,Total 1.5 mg/dL (0.2-1.3)
[2023-01-20] MEDS: CYANOCOBALAMIN 1,000 MCG TABLET 1000 MCG PO (08:35)
[2023-01-20] MEDS: ATORVASTATIN 10 MG TABLET PO (08:35)
[2023-01-20] MEDS: ASPIRIN 325 MG TABLET PO (08:35)
[2023-01-20] MEDS: TAMSULOSIN HCL 0.4 MG CAPSULE PO (08:35)
--- NOTE | 2023-01-20 13:12 | PM.IMPN ---
Progress Note: A&P Assessment and Plan (1) Frequent falls: Code(s): R29.6 - Repeated falls Status: Acute Assessment and Plan: Patient fell from his recliner. Did not hit head or lose consciousness. Did not sustain any injuries Was on the ground for about 2 hours prior to calling for help. CK 160 Fall precautions PT/OT eval appreciated (2) Urinary tract infection: Code(s): N39.0 - Urinary tract infection, site not specified Status: Acute Assessment and Plan: Urinalysis abnormal on presentation with nitrates, leuk esterase, and white blood cells. Patient symptomatic Urine culture is pending Continue empiric IV ceftriaxone while awaiting culture results (3) Urinary retention: Code(s): R33.9 - Retention of urine, unspecified Status: Chronic Assessment and Plan: Chronic ongoing issue, established with urology. Patient does intermittent self catheterization as needed May have contributed to UTI as above Wang catheter placed on admission. Will discontinue at this time. Monitor urine output. Pt alert and oriented and able to manage self cath as needed. Will provide supplies during admission. Bladder scan as needed. (4) Generalized weakness: Code(s): R53.1 - Weakness Status: Acute Assessment and Plan: Likely etiology for fall noted above Suspect chronic issue due to physical deconditioning, likely acutely worsened by suspected UTI PT/OT eval and fall precautions TSH and folate within normal limits. B12 low end of normal and will supplement (5) Hyperbilirubinemia: Code(s): E80.6 - Other disorders of bilirubin metabolism Status: Acute Assessment and Plan: Total bili mildly elevated at 1.6 on admission LFTs are within normal limits No acute issues at this time 1.5 today Will check direct and indirect bilirubin levels (6) Dizziness: Code(s): R42 - Dizziness and giddiness Status: Chronic Assessment and Plan: Chronic, ongoing issue. Does not appear to have contributed to fall noted above Continue with meclizine as needed Subjective Date/time seen: 01/20/23 13:12 Interval history: Cristobal Miller is an 82-year-old male with a history of BPH, CAD, hypertension, hyperlipidemia, DVT who is seen in follow-up for UTI. He feels better today. States he woke up feeling stronger and much improved. He was able to walk to the bathroom independently and fell very comfortable doing this. No issues with his Wang catheter. He denies nausea, vomiting, fever, or chills. Reports he had a regular bowel movement yesterday. His appetite is good. He has no additional concerns Review of Systems Review of Systems: All systems reviewed & are unremarkable except as noted in HPI and below Exam Narrative: General: Well-nourished, well-appearing 82-year-old male, sitting up in bed, comfortable, NARD Neuro: awake, alert and oriented x4, speech clear, no focal neuro deficits noted HEENMT: normocephalic, atraumatic, EOMI, sclerae anicteric Respiratory: clear to auscultation bilaterally, nonlabored breathing Cardio: regular rate, regular rhythm with S1-S2 Abdomen: nondistended, normoactive bowel sounds, soft, nontender to palpation : Wang catheter patent and draining straw-colored urine Extremities: no edema, erythema, or tenderness to palpation Skin: no rashes or lesions, warm and dry Psych: appropriate mood and affect, judgment and insight fair Objective Data Vital Signs Vital Signs: Vital Signs - 24 hr 01/19/23 14:00 01/19/23 20:00 01/19/23 22:56 Temperature 97.6 F 98.5 F Pulse Rate 74 78 Respiratory Rate 19 16 Blood Pressure 120/58 L 129/44 L Pulse Oximetry 98 94 Oxygen Delivery Room Air 01/19/23 22:53 01/20/23 06:00 Temperature 99.1 F Pulse Rate 87 Respiratory Rate 16 Blood Pressure 159/71 H Pulse Oximetry 94 93 Oxygen Delivery Room Air Inta
[2023-01-20 15:16] VITALS: BP 135/84; PULSE 78; RESP 18; TEMP 36.7; O2SAT 97
[2023-01-20 22:22] VITALS: BP 167/58; PULSE 84; RESP 18; TEMP 36.9; O2SAT 95
[2023-01-21 05:29] LABS: Hematocrit 45.8 % (42.0-52.0); Hemoglobin 14.6 g/dL (14.0-18.0); Mean Corpuscular HGB Conc 31.9 g/dl (32-36); Mean Corpuscular Hemoglobin 30.5 pg (26-34); Mean Corpuscular Volume 95.8 fl (80-100); Mean Platelet Volume 11.3 fl (7.4-10.4); Platelet Count Result 161 k/mm3 (150-375); Red Blood Count 4.78 M/mm3 (4.6-6.20); Red Cell Distribution Width 12.8 % (11.5-14.5); White Blood Count 8.5 K/mm3 (4.5-10.0)
[2023-01-21 05:42] LABS: Alanine Aminotransferase 30 U/L (6-50); Albumin Level 3.6 g/dL (3.5-5.1); Alkaline Phosphatase 60 U/L (38-126); Anion Gap 7 mmol/L (8-16); Aspartate Amino Transferase 26 U/L (17-59); Bilirubin Indirect 1.3 mg/dL (0-1.1); Bilirubin,Total 1.3 mg/dL (0.2-1.3); Blood Urea Nitrogen 16 mg/dL (9-20); Calcium 7.9 mg/dL (8.4-10.2); Carbon Dioxide 22 mmol/L (22-30); Chloride 105 mmol/L (98-107); Estimated CRCL calculation 55 ml/min; Estimated Glomerular Filt Rate > 60; Glucose 103 mg/dL (65-110); Potassium 3.5 mmol/L (3.4-5.0); Sodium 134 mmol/L (137-145)
[2023-01-21 06:00] VITALS: BP 125/60; PULSE 74; RESP 18; TEMP 36.6; O2SAT 96
[2023-01-21] MEDS: CYANOCOBALAMIN 1,000 MCG TABLET 1000 MCG PO (09:12)
[2023-01-21] MEDS: TAMSULOSIN HCL 0.4 MG CAPSULE PO (09:12)
[2023-01-21] MEDS: ASPIRIN 325 MG TABLET PO (09:12)
[2023-01-21] MEDS: ATORVASTATIN 10 MG TABLET PO (09:12)
[2023-01-21] MEDS: CEFDINIR 300 MG CAPSULE PO ×2 (09:42→20:38)
[2023-01-21 09:43] VITALS: RESP 18; O2SAT 96
[2023-01-21 14:00] VITALS: BP 130/65; PULSE 80; RESP 18; TEMP 36.7; O2SAT 94
--- NOTE | 2023-01-21 14:32 | PM.IMPN ---
Progress Note: A&P Assessment and Plan (1) Frequent falls: Code(s): R29.6 - Repeated falls Status: Acute Assessment and Plan: Patient fell from his recliner. Did not hit head or lose consciousness. Did not sustain any injuries Was on the ground for about 2 hours prior to calling for help. CK 160 Fall precautions PT/OT eval appreciated (2) Urinary tract infection: Code(s): N39.0 - Urinary tract infection, site not specified Status: Acute Assessment and Plan: Urinalysis abnormal on presentation with nitrates, leuk esterase, and white blood cells. Patient symptomatic Urine culture with growth of E coli, sensitive to Rocephin Patient received IV Rocephin, will transition to p.o. cefdinir today to complete a 7 day course (3) Urinary retention: Code(s): R33.9 - Retention of urine, unspecified Status: Chronic Assessment and Plan: Chronic ongoing issue, established with urology. Patient does intermittent self catheterization as needed May have contributed to UTI as above Wang catheter placed on admission, discontinued on 01/20/2023 Patient voiding spontaneously. Will perform bladder scan to ensure no retention. Continue with self caths as needed, supplies provided during admission (4) Generalized weakness: Code(s): R53.1 - Weakness Status: Acute Assessment and Plan: Likely etiology for fall noted above Suspect chronic issue due to physical deconditioning, likely acutely worsened by suspected UTI PT/OT eval and fall precautions TSH and folate within normal limits. B12 low end of normal and will supplement Hopeful discharge tomorrow if continued improvement. Plantar return home where he lives with his and his daughter is next door who can assist as needed (5) Hyperbilirubinemia: Code(s): E80.6 - Other disorders of bilirubin metabolism Status: Acute Assessment and Plan: Total bili mildly elevated at 1.6 on admission LFTs are within normal limits Total bilirubin levels normalized today Indirect bilirubin slightly elevated at 1.3 Will check LDH, haptoglobin, reticulocytes (6) Dizziness: Code(s): R42 - Dizziness and giddiness Status: Chronic Assessment and Plan: Chronic, ongoing issue. Does not appear to have contributed to fall noted above Continue with meclizine as needed Subjective Date/time seen: 01/21/23 14:32 Interval history: Cristobal Miller is an 82-year-old male with a history of BPH, CAD, hypertension, hyperlipidemia, DVT who is seen in follow-up for UTI. He is doing better today. He does complain of feeling sleepy today. Feels that his strength is improving, though he is still not back to his typical self. He was able to ambulate to and from the bathroom today but still endorses feeling weak in his legs. He denies dizziness or lightheadedness. His appetite is good. Denies fevers or chills. Does endorse urinary frequency. No dysuria or hematuria. Review of Systems Review of Systems: All systems reviewed & are unremarkable except as noted in HPI and below Exam Narrative: General: Well-nourished, well-appearing 82-year-old male, sitting up in bed, comfortable, NARD Neuro: awake, alert and oriented x4, speech clear, no focal neuro deficits noted HEENMT: normocephalic, atraumatic, EOMI, sclerae anicteric Respiratory: clear to auscultation bilaterally, nonlabored breathing Cardio: regular rate, regular rhythm with S1-S2 Abdomen: nondistended, normoactive bowel sounds, soft, nontender to palpation Extremities: no edema, erythema, or tenderness to palpation Skin: no rashes or lesions, warm and dry Psych: appropriate mood and affect, judgment and insight intact Objective Data Vital Signs Vital Signs: Vital Signs - 24 hr 01/20/23 15:16 01/20/23 20:00 01/20/23 22:22 Temperature 98.1 F 98.5 F Pulse Rate 78 84 Respiratory Rate 18 18 Bl
[2023-01-21 15:26] LABS: Immature Reticulocyte Fraction 9.6 % (3.0-15.9); Reticulocyte Hemoglobin Conten 32.3 pg (28.2-35.7); Reticulocyte Percent 1.86 % (0.7-4.3); Reticulocytes Absolute 0.09 M/mm3 (0.02-0.1)
[2023-01-21 17:06] LABS: Alanine Aminotransferase 34 U/L (6-50); Albumin Level 3.7 g/dL (3.5-5.1); Alkaline Phosphatase 58 U/L (38-126); Anion Gap 3 mmol/L (8-16); Aspartate Amino Transferase 28 U/L (17-59); Bilirubin,Total 1.2 mg/dL (0.2-1.3); Blood Urea Nitrogen 20 mg/dL (9-20); Calcium 8.4 mg/dL (8.4-10.2); Carbon Dioxide 28 mmol/L (22-30); Chloride 105 mmol/L (98-107); Estimated CRCL calculation 43 ml/min; Estimated Glomerular Filt Rate 53; Glucose 127 mg/dL (65-110); Lactate Dehydrogenase 187 U/L (120-246); Potassium 3.7 mmol/L (3.4-5.0); Sodium 136 mmol/L (137-145)
[2023-01-21 19:29] VITALS: BP 118/82; PULSE 78; RESP 20; TEMP 36.6; O2SAT 96
[2023-01-22 03:58] VITALS: BP 118/54; PULSE 69; RESP 20; TEMP 36.3; O2SAT 94
[2023-01-22] MEDS: ASPIRIN 325 MG TABLET PO (08:02)
[2023-01-22] MEDS: ATORVASTATIN 10 MG TABLET PO (08:02)
[2023-01-22] MEDS: CYANOCOBALAMIN 1,000 MCG TABLET 1000 MCG PO (08:02)
[2023-01-22] MEDS: TAMSULOSIN HCL 0.4 MG CAPSULE PO (08:02)
[2023-01-22] MEDS: CEFDINIR 300 MG CAPSULE PO (08:03)
--- NOTE | 2023-01-22 11:15 | PM.DS ---
DS: Admitting Diagnosis Discharge Date 01/22/2023 Admitting Diagnosis Fall DS: Discharge Diagnosis Discharge Diagnosis (1) Frequent falls: Code(s): R29.6 - Repeated falls Status: Acute Assessment and Plan: Patient fell from his recliner. Did not hit head or lose consciousness. Did not sustain any injuries Was on the ground for about 2 hours prior to calling for help. CK 160 Fall precautions implemented Participated in PT/OT during admission and did well with this. (2) Urinary tract infection: Code(s): N39.0 - Urinary tract infection, site not specified Status: Acute Assessment and Plan: Urinalysis abnormal on presentation with nitrates, leuk esterase, and white blood cells. Patient symptomatic Urine culture with growth of E coli, sensitive to Rocephin Patient received IV Rocephin, transitioned to p.o. cefdinir which she will continue as an outpatient to complete a 7 day course (3) Urinary retention: Code(s): R33.9 - Retention of urine, unspecified Status: Chronic Assessment and Plan: Chronic ongoing issue, established with urology. Patient does intermittent self catheterization as needed May have contributed to UTI as above Wang catheter placed on admission, discontinued on 01/20/2023. Patient subsequently voiding spontaneously, no issues with retention during admission Continue with self caths as needed and outpatient urology follow-up (4) Generalized weakness: Code(s): R53.1 - Weakness Status: Acute Assessment and Plan: Likely etiology for fall noted above Suspect chronic issue due to physical deconditioning, likely acutely worsened by UTI TSH and folate within normal limits. B12 low end of normal and supplementation was initiated Weakness improved. Patient ambulating independently with a walker. Returning home independently on discharge. (5) Hyperbilirubinemia: Code(s): E80.6 - Other disorders of bilirubin metabolism Status: Resolved Assessment and Plan: Indirect hyperbilirubinemia. Total bili mildly elevated at 1.6 on admission LFTs within normal limits Indirect bilirubin elevated at 1.3. No recent, hematoma, or blood transfusion. LDH and reticulocyte count normal. Haptoglobin pending. No evidence of hemolysis. 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 Total bili 1.2 at time of discharge (6) Dizziness: Code(s): R42 - Dizziness and giddiness Status: Chronic Assessment and Plan: Chronic, ongoing issue. Does not appear to have contributed to fall noted above Continue with meclizine as needed DS: Summary Hospital Course Hospital Course: Cristobal Miller is an 82-year-old male with a history of BPH, CAD, hypertension, hyperlipidemia, DVT who presented to the emergency department on 01/19/2023 after suffering a fall at home. Presentation to the ED, his vital signs were stable, he was afebrile, WBC 17.8, total bilirubin 1.6, UA grossly abnormal. He was admitted to the hospitalist service for further evaluation and management. Please see above for further details. Patient was treated for UTI and had significant improvement. Weakness improved and patient was able to ambulate independently. B12 was supplemented. He was back to his baseline state of health and determined to no longer require inpatient care. Patient felt comfortable with plans for discharge home. Discussed worrisome signs and symptoms for which to return and he was educated on his medications at length. He was discharged in hemodynamically stable condition on 01/22/2023. Time Spent with Patient Time attestation: Total time spent providing and/or coordinating discharge services: 40 minutes Time spent: Greater than 30 minutes Exam Narrative: General: Well-nourished, well-appearing 82-year-old male, sitting up in bed, comfortable, NARD Neuro: awake, alert and or
[2023-01-24 19:34] LABS: Haptoglobin 98 mg/dL (43-212)
== END 2023-01-22 12:15 | disposition home or self-care (01) | DRG 700 ==
LOC: ANHED 05:45 → ANH2MED 06:09
PROVIDERS: Admitting Provider Internal Medicine; Emergency Provider Emergency Medicine; PCP Family Medicine; Visit Provider Physician Assistant
DX: T83.511A Infection and inflammatory reaction due to indwelling urethral catheter, initial encounter (principal); N39.0 Urinary tract infection, site not specified; B96.20 Unspecified Escherichia coli [E. coli] as the cause of diseases classified elsewhere; W07.XXXA Fall from chair, initial encounter; R29.6 Repeated falls; R33.8 Other retention of urine; R42 Dizziness and giddiness; I25.10 Atherosclerotic heart disease of native coronary artery without angina pectoris; E78.5 Hyperlipidemia, unspecified; I10 Essential (primary) hypertension; R91.1 Solitary pulmonary nodule; E80.6 Other disorders of bilirubin metabolism; N40.0 Benign prostatic hyperplasia without lower urinary tract symptoms; Z86.718 Personal history of other venous thrombosis and embolism; Z95.1 Presence of aortocoronary bypass graft; Z95.5 Presence of coronary angioplasty implant and graft; Z87.891 Personal history of nicotine dependence
CPT/HCPCS: 36415; 80048; 80053; 80076; 81001; 82248; 82550; 82607; 82746; 83010; 83615; 84443; 85025; 85027; 85046; 87077; 87086; 87088; 87186; 96365; 97110; 97161; 97165; 97530; 97535; 99285; A9270; G0378; J0696; J7030

== ENCOUNTER 2024-06-22 03:31 | Inpatient (IN) | payer MEDICARE, SELFPAY ==
[2024-06-22] VITALS (13 sets, daily range): BP systolic 112–176; BP diastolic 52–91; PULSE 68–114; RESP 16–27; TEMP 36.7–36.8; O2SAT 91–99; BMI 30.6
--- NOTE | ~2024-06-22 | CT_ITS ---
EXAMINATION: CT brain wo con DATE: 06/22/2024 20:56 INDICATION: fall . TECHNIQUE: Computed tomography (CT) of the head was performed without intravenous contrast. The mA wa s adjusted according to patient size. Iterative reconstruction technique was employed. The dose-lengt h product was 605.33 mGy-cm. COMPARISON: 08/05/2016. FINDINGS: No acute intracranial hemorrhage or extra-axial fluid collection. No hydrocephalus, mass, or herniation. No acute ischemic infarct. Unremarkable dural venous sinus attenuation. No acute osseous abnormality. Ethmoid mucosal thickening, the remaining aerated spaces are clear. Moderate atrophy and mild chronic white matter change. Atherosclerotic intracranial calcification. Bi lateral lens replacements. IMPRESSION: No acute intracranial process. Reviewed, dictated and finalized at location K. GER SOCIAL RESPONSIBILITY
--- NOTE | ~2024-06-22 | US_ITS ---
EXAMINATION: US venous doppler [facility] DATE: 06/22/2024 18:51 INDICATION: Lower limb pain. Rule out DVT . TECHNIQUE: Grayscale images without and with compression and Doppler images of the bilateral lower ex tremity veins were obtained. COMPARISON: None FINDINGS: The right common femoral vein, profunda (deep) femoral vein, femoral vein, peroneal vein, posterior t ibial veins, and greater saphenous vein are patent. The left common femoral vein, profunda (deep) femoral vein, femoral vein, popliteal vein, peroneal v ein, posterior tibial veins, gastrocnemius vein, and greater saphenous vein are patent. IMPRESSION: Acute deep venous thrombosis in the right popliteal and gastrocnemius veins. No DVT detected in the l eft lower extremity. Reviewed, dictated and finalized at location K. STANT PROFESSOR OF ECONOMICS IMPRESSION: Acute deep venous thrombosis in the right popliteal and gastrocnemius veins. No DVT detected in the left lower extremity.
--- NOTE | ~2024-06-22 | XR_ITS ---
EXAMINATION: XR chest 1V portable DATE: 06/22/2024 07:43 INDICATION: Cough. TECHNIQUE: A single frontal view of the chest was obtained. COMPARISON: Chest 2 views 09/14/2022, chest CT 10/04/2017 FINDINGS: Calcified right lung nodules are consistent with old granulomatous disease. No pleural effu ricki or pneumothorax. The heart size is normal. There are old healed right rib fractures. IMPRESSION: 1. No acute cardiopulmonary disease. Reviewed, dictated and finalized at location A. MAKING SUPERVISOR
--- NOTE | 2024-06-22 03:44 | ECG_ITS ---
Test Date: 2024-06-22 03:47:14 Measurements Intervals [place] Rate: 103 P: 44 W[place]: 164 QRS: 35 QRSD: 96 T: 54 QT: 324 QTc: 426 Interpretive Statements SINUS TACHYCARDIA DELAYED PRECORDIAL R/S TRANSITION BASELINE ARTIFACT- I, II, III, AVR, AVL, AVF, V1-V2 BORDERLINE ECG No previous ECG available for comparison Electronically Signed On 06-22-2024 06:26:18 [employer] ETCH[employer] APPRENTICE by Luis Mosley D.O.
[2024-06-22 04:01] LABS: Basophils Absolute Auto 0.1 K/mm3 (0.0-0.1); Basophils Percent Auto 0.2 % (0.2-1.2); Hematocrit 44.7 % (42.0-52.0); Hemoglobin 15.1 g/dL (14.0-18.0); Immature Granulocyte Absolute 0.12 K/mm3 (0.00-0.031); Immature Granulocyte Percent A 0.6 % (0-0.5); Lymphocytes Absolute Auto 0.64 K/mm3 (0.9-3.2); Lymphocytes Percent Auto 3.1 % (18.3-44.2); Mean Corpuscular HGB Conc 33.8 g/dl (32-36); Mean Corpuscular Hemoglobin 30.2 pg (26-34); Mean Corpuscular Volume 89.4 fl (80-100); Monocytes Absolute Auto 1.3 K/mm3 (0.1-0.6); Monocytes Percent Auto 6.3 % (2.6-8.5); Neutrophils Absolute Auto 18.2 K/mm3 (1.3-6.7); Neutrophils Percent Auto 89.8 % (45.5-73.1); Platelet Count Result 158 k/mm3 (150-375); Red Cell Distribution Width 12.7 % (11.5-14.5); White Blood Count 20.3 K/mm3 (4.5-10.0)
[2024-06-22 04:12] LABS: Alanine Aminotransferase 52 U/L (6-50); Albumin Level 4.1 g/dL (3.5-5.1); Alkaline Phosphatase 66 U/L (38-126); Anion Gap 7 mmol/L (4-12); Aspartate Amino Transferase 39 U/L (17-59); Bilirubin,Total 1.9 mg/dL (0.2-1.3); Blood Urea Nitrogen 20 mg/dL (9-20); Calcium 8.7 mg/dL (8.4-10.2); Carbon Dioxide 26 mmol/L (22-30); Chloride 104 mmol/L (98-107); Estimated Glomerular Filt Rate > 60; Glucose 135 mg/dL (65-110); Potassium 4.7 mmol/L (3.4-5.0); Sodium 137 mmol/L (137-145)
--- NOTE | 2024-06-22 07:09 | ED_ITS ---
HPI - Weakness General Chief complaint: Weakness Stated complaint: FALL, INCREASING WEAKNESS Time Seen by Provider: 06/22/24 07:02 History of Present Illness HPI Narrative: Pt presents with generalized weakness overnight. Pt rolled out of bed but denies injury from this but then was unable to get up. Pt says legs feel weak. Pt denies cough or fever of CP or SOB or urinary symptoms. Related Data Home Medications Medication Instructions Recorded Confirmed aspirin 325 mg tablet 325 mg PO DAILY 02/06/20 06/22/24 Allergies Allergy/AdvReac Type Severity Reaction Status Date / Time gabapentin Allergy Severe Unknown Verified 06/22/24 12:58 Penicillins Allergy Severe hives Verified 06/22/24 12:58 Review of Systems Review of Systems: All systems reviewed & are unremarkable except as noted in HPI and below PMFSH Past Medical History Medical History Benign prostate hyperplasia Chronic gingival disease Coronary atherosclerosis Diastolic dysfunction Noted on echocardiogram August 2016 with EF of 60% Essential (primary) hypertension History of BPH Hx of deep venous thrombosis Hyperlipidemia Lung nodule Scrotal sebaceous cyst Surgical History Surgical History Abdominal aortic aneurysm 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 He is retired from being an excavator and farming. He designates his , Jaelyn or his daughter, Edwige as his surrogate decision maker Primary care physician: Dr. Bradford Mary Code status: Full code Smoking packs per day: 1.5 Smoking cigarettes per day: 30.0 Years smoked: 50 Smoking pack-years: 75.00 Smoking status: Never smoker Second hand tobacco smoke exposure: Yes Alcohol intake: never Alcohol use details: Rare alcohol intake Substance use: never Substance use type: does not use Do You Feel Safe in your Home?: Yes Lack of Transportation: No Lack of Food: Never True Current Housing: I Have Housing Concerned About Future Housing: No Difficulty Paying Gas/Electric Bills: No Difficulty Paying for Meds: No Currently Unemployed: No Education: Don't Know Difficulty w/ Childcare or Family Care: No Living arrangements: with family Additional living arrangements comments: He lives in [place] with his Gender identity (if verbalized by the patient): Male Spiritual care concerns: No Exam Const: General: healthy appearing and no acute distress Nutritional Appearance: well nourished Orientation/consciousness: patient oriented x3 Limitations: no limitations Neck: Neck: normal visual inspection Chest: Chest palpation & inspection: normal inspection of the chest Resp: Effort & Inspection: normal respiratory effort Auscultation: clear to auscultation bilaterally Cardio: Rate: regular rate Rhythm: regular rhythm GI: GI Palp: Yes Soft to palpation and No Tenderness to palpation present (GI) Auscultation: normal bowel sounds Skin: General skin exam: normal color Wounds: no wounds Neuro: General: patient oriented x3, moves all extremities, no meningeal signs and no focal motor deficits Cranial nerves: Yes Nystagmus not present Speech: normal speech Extrem: General: normal to inspection and no clubbing, cyanosis or edema Psych: Mental Status: mental status grossly normal Affect: normal affect Attitude: cooperative Course Vital Signs Vital signs: Vital Signs Pulse Rate 114 H 06/22/24 03:35 Respiratory Rate 26 H 06/22/24 03:35 Blood Pressure 131/91 H 06/22/24 03:35 Pulse Oximetry 97 06/22/24 03:35 Oxygen Delivery Room Air 06/22/24 03:35 Temperature 98.0 F 06/22/24 14:00 Pulse Rate 85 06/22/24 14:00 Respiratory Rate 18 06/22/24 14:00 Blood Pressure 149/66 H 06/22/24 14:00 Pulse Oximetry 95 06/22/24 14:00 Oxygen Delivery Room Air 06/22/24 17:30 MDM - Weakness MDM Narrative Medical decision making narrative: Pt presents with weakness overnight. unable to et up. calos check labs and UA and cxr and ekg . wbc elevated but no definite source with UA or cxr. discussed with pt and would prefer admission. discussed with Dr raysa and agreaable to obs Differential Diagnosis Differential diagnosis: Likely acute myocardial infarction, anemia, hypo glycemia, hypothyroidism, sepsis and dehydration Lab Data 06/22/24 15:35 06/22/24 03:52 Labs: Lab Results 06/22/24 06/22/24 06/22/24 Range/Units 03:52 07:27 09:03 WBC 20.3 H (4.5-10.0) K/mm3 RBC 5.00 (4.6-6.20) M/mm3 Hgb 15.1 (14.0-18.0) g/dL Hct 44.7 (42.0-52.0) % MCV 89.4 (80-100) fl MCH 30.2 (26-34) pg MCHC 33.8 (32-36) g/dl RDW 12.7 (11.5-14.5) % Plt Count 158 (150-375) k/mm3 MPV 10.0 (7.4-10.4) fl Immature Gran % (Auto) 0.6 H (0-0.5) % Neut % (Auto) 89.8 H (45.5-73.1) % Lymph % (Auto) 3.1 L (18.3-44.2) % Carbon % (Auto) 6.3 (2.6-8.5) % Eos % (Auto) 0.0 (0-4.4) % Baso % (Auto) 0.2 (0.2-1.2) % Lymph # (Auto) 0.64 L (0.9-3.2) K/mm3 Carbon # (Auto) 1.3 H (0.1-0.6) K/mm3 Eos # (Auto) 0.0 (0-0.3) K/mm3 Baso # (Auto) 0.1 (0.0-0.1) K/mm3 Abs Immat Gran (auto) 0.12 H (0.00-0.031) K/mm3 Absolute Neuts (auto) 18.2 H (1.3-6.7) K/mm3 Absolute Nucleated RBC 0.000 (0.0-0.012) K/mm3 Nucleated RBC % 0.0 (0.0-0.2) % PT 14.3 (11.1-14.7) Seconds INR 1.1 APTT 28.6 (22.3-36.8) Seconds Sodium 137 (137-145) mmol/L Potassium 4.7 (3.4-5.0) mmol/L Chloride 104 (98-107) mmol/L Carbon Dioxide 26 (22-30) mmol/L Anion Gap 7 (4-12) mmol/L BUN 20 (9-20) mg/dL Creatinine 1.10 (0.7-1.3) mg/dL Estim Creat Clear Calc Not Reportable Estimated GFR > 60 (59 - ) Glucose 135 H (65-110) mg/dL Lactic Acid 1.7 (0.7-2.0) mmol/L Calcium 8.7 (8.4-10.2) mg/dL Total Bilirubin 1.9 H (0.2-1.3) mg/dL AST 39 (17-59) U/L ALT 52 H (6-50) U/L Alkaline Phosphatase 66 (38-126) U/L C-Reactive Protein 3.8 H (<1.0) mg/dL Total Protein 7.0 (6.3-8.2) g/dL Albumin 4.1 (3.5-5.1) g/dL Urine Color Yellow (Yellow) Urine Appearance Clear (Clear) Urine pH 6.5 (5.0-9.0) Ur Specific [place] 1.019 (1.001-1.035) Urine Protein Trace (Negative) mg/dL Urine Glucose (UA) Negative (Negative) mg/dL Urine Ketones Negative (Negative) mg/dL Ur Blood (Man) Negative (Negative) Urine Nitrate Negative (Negative) Urine Bilirubin Negative (Negative) Urine Urobilinogen 1.0 (<2.0) mg/dL Leukocyte Esterase Rfl Negative (Negative) BENTLEY/UL Urine RBC 0-2 (0-2) /hpf Urine WBC 0-5 (0-3) /hpf Ur Squamous Epith Cells None seen (Few) /hpf Urine Bacteria None seen /hpf Urine Casts 0-2 Discharge Plan Discharge Clinical Impression: Weakness Patient Disposition: Still a Patient Condition: Stable
[2024-06-22 07:43] LABS: INR 1.1; Prothrombin Time 14.3 Seconds (11.1-14.7)
[2024-06-22 07:44] LABS: Partial Thromboplastin Time 28.6 Seconds (22.3-36.8)
[2024-06-22 07:54] LABS: Lactic Acid Reflex 1.7 mmol/L (0.7-2.0)
[2024-06-22 07:57] LABS: CRP 3.8 mg/dL (<1.0)
[2024-06-22 09:13] LABS: Add Urine Microscopic? YES; Appearance Urine Clear (Clear); Bacteria Urine None Seen /hpf; Bilirubin Urine Negative (Negative); Blood Urine Negative (Negative); Color Urine Yellow (Yellow); Glucose Urine UA Negative (Negative); Ketones Urine Negative (Negative); Leukocyte Esterase Ur Negative LEU/UL (Negative); Nitrate Urine Negative (Negative); Non Pathogenic Casts 0-2; Protein Urine Trace mg/dL (Negative); RBC Urine 0-2 /hpf (0-2); Specific Grav Ur 1.019 (1.001-1.035); Squamous Epithelial Cell Urine None Seen /hpf (Few); WBC Urine 0-5 /hpf (0-3); pH Urine 6.5 (5.0-9.0)
--- NOTE | 2024-06-22 11:32 | ADMGEN ---
This patient, Cristobal Miller, was admitted to 3 Med Surg Room 304-01. Patient/family oriented to hospital policies and general routines including ID bracelet, bed and alarms, visiting hours, pain management, procedures, bathroom and other care routines, personal items, smoking policy, room service/diet, and visiting hours. Information on how to activate the Rapid Response Team has been discussed. Patient/Family are encouraged to report perceived risks to care and to ask questions if they do not understand what they are told or what they should do.
--- NOTE | 2024-06-22 12:27 | P.HP_ITS ---
H&P: HPI History of Present Illness Date/Time: 06/22/24 12:27 Chief Complaint: Fall Narrative: Cristobal iMller is an 82-year-old male with a history of BPH, CAD, hypertension, hyperlipidemia, DVT who presented to the emergency department on 06/22/2024 after suffering a fall at home. Had a long conversation with his , who provided the complete history. Patient lives with her, walks by himself although not very active. She reports whenever he gets a UTI or leg infection he becomes weak, unable to walk and have a fall and Ancef in the hospital. Patient has a remote history of DVT right leg about 10-15 years ago. She she believes but not able to confirm that he had a surgery and the clot was removed in his right leg. She also reports chronically his right leg has been swollen. Yesterday patient had difficulty in ambulation but last night she helped him moving from the recliner to the bed. Around 3:00 a.m. she found him between the bed and the wall down on the floor. Upon questioning the patient he denies any head trauma. He reports he was feeling weak past few days. In the ED his lab work shows increased WBC of 20 but no evidence of UTI or pathologic process in the chest x-ray. Patient in does patient had multiple UTIs before but denies having chronic Wang. We have repeated the CBC and also ordered chest CT to rule out any intracranial abnormalities and lower extremity ultrasound to rule out DVT Review of Systems Review of Systems: All systems reviewed & are unremarkable except as noted in HPI and below PMFSH Past Medical History Medical History Benign prostate hyperplasia Chronic gingival disease Coronary atherosclerosis Diastolic dysfunction Noted on echocardiogram August 2016 with EF of 60% Essential (primary) hypertension History of BPH Hx of deep venous thrombosis Hyperlipidemia Lung nodule Scrotal sebaceous cyst Surgical History Surgical History Abdominal aortic aneurysm 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 He is retired from being an excavator and farming. He designates his , Jaelyn or his daughter, Edwige as his surrogate decision maker Primary care physician: Dr. Bradford Mary Code status: Full code Smoking packs per day: 1.5 Smoking cigarettes per day: 30.0 Years smoked: 50 Smoking pack-years: 75.00 Smoking status: Former smoker Second hand tobacco smoke exposure: Yes Alcohol intake: current Alcohol use details: Rare alcohol intake Substance use type: does not use Lack of Transportation: No Lack of Food: Never True Current Housing: I Have Housing Concerned About Future Housing: No Difficulty Paying Gas/Electric Bills: No Difficulty Paying for Meds: No Currently Unemployed: No Education: Trade/Vocational Certificate Difficulty w/ Childcare or Family Care: No Living arrangements: with family Additional living arrangements comments: He lives in [place] with his Gender identity (if verbalized by the patient): Male Spiritual care concerns: No Meds Home Medications and Allergies Home Medications Medication Instructions Recorded Confirmed Type aspirin 325 mg tablet 325 mg PO DAILY 02/06/20 06/22/24 History triamcinolone acetonide 0.1 % 1 applic topical BID PRN 12/12/21 06/22/24 Rx topical cream dermatitis #30 grams meclizine 25 mg tablet 25 mg PO TID PRN dizziness #30 tabs 12/27/22 06/22/24 Rx cyanocobalamin (vitamin B-12) 1,000 mcg PO QAM #30 tabs 01/22/23 06/22/24 Rx 1,000 mcg tablet (Vitamin B-12) silver sulfadiazine 1 % topical 1 applic topical BID #85 grams 01/08/24 06/22/24 Rx cream (Silvadene) amlodipine 5 mg tablet See Rx Instructions .Route 02/14/24 06/22/24 Rx .COMPLEX #90 tabs atorvastatin 10 mg tablet See Rx Instructions .Route 03/06/24 06/22/24 Rx .COMPLEX #90 tabs tamsulosin 0.4 mg capsule 0.4 mg PO DAILY #90 caps 05/08/24 06/22/24 Rx finasteride 5 mg tablet 5 mg PO DAILY #90 tabs 06/16/24 06/22/24 Rx Allergies Allergy/AdvReac Type Severity Reaction Status Date / Time gabapentin Allergy Severe Unknown Verified 06/22/24 12:58 Penicillins Allergy Severe hives Verified 06/22/24 12:58 Vital Signs Vital Signs - 24 hr 06/22/24 03:35 06/22/24 03:35 06/22/24 07:02 Temperature Pulse Rate 114 H 114 H 90 Respiratory Rate 26 H 18 Blood Pressure 131/91 H 112/74 Pulse Oximetry 97 99 Oxygen Delivery Room Air 06/22/24 08:05 06/22/24 08:17 06/22/24 08:31 Temperature Pulse Rate 94 79 84 Respiratory Rate 16 19 27 H Blood Pressure 119/70 176/78 H 159/72 H Pulse Oximetry 96 94 98 Oxygen Delivery 06/22/24 08:47 06/22/24 09:00 06/22/24 10:25 Temperature Pulse Rate 78 83 73 Respiratory Rate 19 22 H 18 Blood Pressure 166/67 H 119/52 L 168/77 H Pulse Oximetry 98 96 94 Oxygen Delivery 06/22/24 11:12 06/22/24 12:00 Temperature 98.0 F Pulse Rate 68 79 Respiratory Rate 16 18 Blood Pressure 131/73 161/79 H Pulse Oximetry 99 95 Oxygen Delivery Exam Const: General: healthy appearing, no acute distress and well nourished Nutritional Appearance: well nourished Orientation/consciousness: patient oriented x3 Limitations: no limitations Neck: Neck: normal visual inspection and no meningeal signs Chest: Chest palpation & inspection: normal inspection of the chest Resp: Effort & Inspection: normal respiratory effort Auscultation: clear to auscultation bilaterally Cardio: Rate: regular rate Rhythm: regular rhythm GI: Auscultation: normal bowel sounds Skin: General skin exam: normal color Wounds: no wounds Neuro: General: patient oriented x3, moves all extremities, no meningeal signs and no focal motor deficits Cranial nerves: Yes Nystagmus not present Speech: normal speech Extrem: General: normal to inspection and no clubbing, cyanosis or edema Psych: Mental Status: mental status grossly normal Affect: normal affect Attitude: cooperative H&P: Results Labs Labs: Short CBC 06/22/24 Range/Units 03:52 WBC 20.3 H (4.5-10.0) K/mm3 Hgb 15.1 (14.0-18.0) g/dL Hct 44.7 (42.0-52.0) % Plt Count 158 (150-375) k/mm3 BMP 06/22/24 03:52 Sodium 137 Potassium 4.7 Chloride 104 Carbon Dioxide 26 BUN 20 Creatinine 1.10 Glucose 135 H Calcium 8.7 Liver Function 06/22/24 Range/Units 03:52 Total Bilirubin 1.9 H (0.2-1.3) mg/dL AST 39 (17-59) U/L ALT 52 H (6-50) U/L Alkaline Phosphatase 66 (38-126) U/L Albumin 4.1 (3.5-5.1) g/dL Urine 06/22/24 Range/Units 09:03 Urine Color Yellow (Yellow) Urine Appearance Clear (Clear) Urine pH 6.5 (5.0-9.0) Ur Specific [place] 1.019 (1.001-1.035) Urine Protein Trace (Negative) mg/dL Urine Glucose (UA) Negative (Negative) mg/dL Assessment and Plan Assessment and plan (1) Weakness: Code(s): R53.1 - Weakness Status: Acute (2) Stasis ulcer of right lower extremity: Code(s): I83.019 - Varicose veins of right lower extremity with ulcer of unspecified site; L97.919 - Non-pressure chronic ulcer of unspecified part of right lower leg with unspecified severity Status: Acute (3) Generalized weakness: Code(s): R53.1 - Weakness Status: Acute (4) Frequent falls: Code(s): R29.6 - Repeated falls Status: Acute (5) Dizziness: Code(s): R42 - Dizziness and giddiness Status: Chronic (6) Elevated WBC count: Code(s): D72.829 - Elevated white blood cell count, unspecified Status: Acute Plan Weakness Increased WBC secondary to possible stress No evidence of UTI No evidence of pathological process in chest x-ray Repeated WBC shows 14.7 Remote history of DVT in right leg Unilateral right leg swelling possibly causing difficulty ambulation No electrolyte abnormalities Not in any anticoagulant Ordered CT head Reviewed EKG Blood culture pending DVT prophylaxis: Lovenox Full code Disposition Trend WBC Follow CT head Lower extremity ultrasound results Hospitalist [facility] Advance Care Plan I have confirmed that the patient's Advanced Care Plan is present, code status is documented, or surrogate decision maker is listed in patient medical record.: Yes Medication Reconciliation I have utilized all available resources to obtain, update and review the patients current medications (includes all prescriptions, OTC, herbals, cannabis, and nutritional supplements).: Yes
[2024-06-22 15:41] LABS: Hematocrit 41.8 % (42.0-52.0); Hemoglobin 14.3 g/dL (14.0-18.0); Mean Corpuscular HGB Conc 34.2 g/dl (32-36); Mean Corpuscular Hemoglobin 30.2 pg (26-34); Mean Corpuscular Volume 88.2 fl (80-100); Mean Platelet Volume 9.9 fl (7.4-10.4); Platelet Count Result 139 k/mm3 (150-375); Red Blood Count 4.74 M/mm3 (4.6-6.20); Red Cell Distribution Width 12.8 % (11.5-14.5); White Blood Count 14.7 K/mm3 (4.5-10.0)
[2024-06-23] VITALS (7 sets, daily range): BP systolic 124–159; BP diastolic 43–98; PULSE 78–96; RESP 18–20; TEMP 36.3–36.9; O2SAT 92–96
[2024-06-23 06:36] LABS: Hematocrit 41.8 % (42.0-52.0); Hemoglobin 14.5 g/dL (14.0-18.0); Mean Corpuscular HGB Conc 34.7 g/dl (32-36); Mean Corpuscular Hemoglobin 30.3 pg (26-34); Mean Corpuscular Volume 87.3 fl (80-100); Mean Platelet Volume 9.9 fl (7.4-10.4); Platelet Count Result 140 k/mm3 (150-375); Red Blood Count 4.79 M/mm3 (4.6-6.20); Red Cell Distribution Width 12.7 % (11.5-14.5); White Blood Count 13.9 K/mm3 (4.5-10.0)
[2024-06-23 06:51] LABS: Alanine Aminotransferase 41 U/L (6-50); Albumin Level 3.6 g/dL (3.5-5.1); Alkaline Phosphatase 58 U/L (38-126); Anion Gap 5 mmol/L (4-12); Aspartate Amino Transferase 30 U/L (17-59); Bilirubin,Total 2.2 mg/dL (0.2-1.3); Blood Urea Nitrogen 20 mg/dL (9-20); Calcium 8.3 mg/dL (8.4-10.2); Carbon Dioxide 26 mmol/L (22-30); Chloride 104 mmol/L (98-107); Estimated CRCL calculation 47 ml/min; Estimated Glomerular Filt Rate > 60; Glucose 106 mg/dL (65-110); Potassium 3.7 mmol/L (3.4-5.0); Sodium 135 mmol/L (137-145)
[2024-06-23] MEDS: amLODIPine BESYLATE 5 MG TABLET BY MOUTH (09:21)
[2024-06-23] MEDS: FINASTERIDE 5 MG TABLET PO (09:21)
[2024-06-23] MEDS: TAMSULOSIN HCL 0.4 MG CAPSULE PO (09:21)
[2024-06-23] MEDS: ATORVASTATIN 10 MG TABLET BY MOUTH (09:21)
[2024-06-23] MEDS: ENOXAPARIN 40 MG/0.4 ML SYRINGE SUB-Q (09:21)
[2024-06-23] MEDS: SILVER SULFADIAZINE 1% CR 400 GM JAR (*BKC) 1 APPLIC TOPICAL (09:31)
--- NOTE | 2024-06-23 14:44 | P.PNIM_ITS ---
Progress Note: A&P Assessment and Plan (1) Weakness: Code(s): R53.1 - Weakness Status: Acute (2) Stasis ulcer of right lower extremity: Code(s): I83.019 - Varicose veins of right lower extremity with ulcer of unspecified s ite; L97.919 - Non-pressure chronic ulcer of unspecified part of right lower leg with unspecified severity Status: Acute (3) Generalized weakness: Code(s): R53.1 - Weakness Status: Acute (4) Frequent falls: Code(s): R29.6 - Repeated falls Status: Acute (5) Dizziness: Code(s): R42 - Dizziness and giddiness Status: Chronic (6) Elevated WBC count: Code(s): D72.829 - Elevated white blood cell count, unspecified Status: Acute (7) DVT (deep venous thrombosis): Code(s): I82.409 - Acute embolism and thrombosis of unspecified deep veins of unspecified lower extremity Status: Acute Assessment and Plan: Acute deep venous thrombosis in the right popliteal and gastrocnemius veins. No DVT detected in the left lower extremity. stop lonevox and start eliquis eliquis 10 mg bid x 10 days, then 5 mg bid x 3 months with repeat DVT. Plan Weakness Increased WBC secondary to possible stress No evidence of UTI No evidence of pathological process in chest x-ray Repeated WBC shows 14.7->13.9 (06/23) Remote history of DVT in right leg Unilateral right leg swelling possibly causing difficulty ambulation No electrolyte abnormalities Ordered CT head Reviewed EKG Blood culture pending DVT prophylaxis: eliquis Full code Disposition Trend WBC- trending down Follow CT head- No acute intracranial process. ordered PT/OT Time Spent With Patient Time with patient: Greater than 35 minutes Subjective Date/time seen: 06/23/24 14:44 Interval history: Narrative retrieved from H/P: Cristobal Miller is an 82-year-old male with a history of BPH, CAD, hype rtension, hyperlipidemia, DVT who presented to the emergency department on 06/22/2024 after suffering a fall at home. Had a long conversation with his , who provided the complete history. Patient lives with her, walks by himself although not very active. She reports whenever he gets a UTI or leg infection he becomes weak, unable to walk and have a fall. Patient has a remote history of DVT right leg about 10-15 years ago. She believes but not able to confirm that he had a surgery and the clot was removed in his right leg. She also reports chronically his right leg has been swollen. Yesterday patient had difficulty in ambulation but last night she helped him moving from the recliner to the bed. Around 3:00 a.m. she found him between the bed and the wall down on the floor. Upon questioning the patient he denies any head trauma. He reports he was feeling weak past few days. In the ED his lab work shows increased WBC of 20 but no evidence of UTI or pathologic process in the chest x-ray. Patient in does patient had multiple UTIs before but denies having chronic Wang. We have repeated the CBC and also ordered chest CT to rule out any intracranial abnormalities and lower extremity ultrasound to rule out DVT 06/23- pt is seen and examined. He is somewhat confused - provides vague history. States cannot walk and pee. Unless he is standing up- then can pee fine. Does not think he is following up with urology. Denies any other acute issues- no chest pain, no n,v,d/ Review of Systems 2 Review of Systems: All systems reviewed & are unremarkable except as noted in HPI and below Constitutional: Constitutional: Denies chills Cardiovascular: Cardiovascular: Denies chest pain and Denies diaphoresis Respiratory: Respiratory: Denies chest congestion and Denies cough Gastrointestinal: Gastrointestinal: Denies abdominal pain and Denies diarrhea Genitourinary: Genitourinary: Reports dysuria Musculoskeletal: Comments: rt leg pain Psychiatric: Psychiatric: Denies behavioral changes Exam Const: General: healthy appearing, no acute distress and well nourished Nutritional Appearance: well nourished Orientation/consciousness: patient oriented x3 Limitations: no limitations Neck: Neck: normal visual inspection and no meningeal signs Chest: Chest palpation & inspection: normal inspection of the chest Resp: Effort & Inspection: normal respiratory effort Auscultation: clear to auscultation bilaterally Cardio: Rate: regular rate Rhythm: regular rhythm GI: Auscultation: normal bowel sounds Skin: General skin exam: normal color Wounds: no wounds Neuro: General: patient oriented x3, moves all extremities, no meningeal signs and no focal motor deficits Cranial nerves: Yes Nystagmus not present Speech: normal speech Extrem: General: normal to inspection and no clubbing, cyanosis or edema Psych: Mental Status: mental status grossly normal Affect: normal affect Attitude: cooperative Objective Data Vital Signs Vital Signs: Vital Signs - 24 hr 06/22/24 17:30 06/22/24 20:00 06/22/24 22:00 Temperature 98.2 F 98.2 F Pulse Rate 83 83 Respiratory Rate 18 18 Blood Pressure 159/89 H 159/89 H Pulse Oximetry 91 91 Oxygen Delivery Room Air 06/22/24 20:00 06/23/24 04:00 06/23/24 06:00 Temperature 98.4 F 98.4 F Pulse Rate 78 78 Respiratory Rate 18 18 Blood Pressure 142/79 H 142/79 H Pulse Oximetry 94 94 Oxygen Delivery Room Air 06/23/24 08:43 06/23/24 08:00 06/23/24 08:00 Temperature Pulse Rate Respiratory Rate Blood Pressure Pulse Oximetry 93 Oxygen Delivery Room Air Room Air Room Air 06/23/24 11:45 06/23/24 08:00 06/23/24 10:00 Temperature 97.3 F L 97.5 F L Pulse Rate 96 80 Respiratory Rate 20 20 Blood Pressure 159/98 H 159/77 H Pulse Oximetry 96 92 Oxygen Delivery Room Air 06/23/24 12:00 Temperature 97.3 F L Pulse Rate 80 Respiratory Rate 20 Blood Pressure 150/70 H Pulse Oximetry 93 Oxygen Delivery Intake/Output Intake/Output: Intake & Output 06/20/24 06/21/24 06/22/24 06/23/24 23:59 23:59 23:59 23:59 Intake Total 240 1360 Output Total 300 Balance -60 1360 Meds/Results Medications: Active Medications Generic Name Dose Route Start Last Admin Trade Name Freq PRN Reason Stop Dose Admin Amlodipine Besylate 5 mg 06/23/24 09:00 06/23/24 09:21 Amlodipine Besylate 5 Mg Tablet BY MOUTH 5 mg DAILY POOL Administration Atorvastatin Calcium 10 mg 06/23/24 09:00 06/23/24 09:21 Atorvastatin 10 Mg Tablet BY MOUTH 10 mg DAILY POOL Administration Enoxaparin Sodium 40 mg 06/23/24 09:00 06/23/24 09:21 Enoxaparin 40 Mg/0.4 Ml Syringe SUB-Q 40 mg DAILY POOL Administration Finasteride 5 mg 06/23/24 09:00 06/23/24 09:21 Finasteride 5 Mg Tablet PO 5 mg DAILY POOL Administration Silver Sulfadiazine 1 applic 06/22/24 17:00 06/23/24 09:31 Silver Sulfadiazine 1% Cr 400 Gm Jar (*Bkc) TOPICAL 1 applic BID POOL Administration Tamsulosin HCl 0.4 mg 06/23/24 09:00 06/23/24 09:21 Tamsulosin Hcl 0.4 Mg Capsule PO 0.4 mg DAILY POOL Administration Radiology Results: ITS Impressions Chest X-Ray 06/22/24 07:45 IMPRESSION: 1. No acute cardiopulmonary disease. Venous Doppler Study 06/22/24 18:56 IMPRESSION: Acute deep venous thrombosis in the right popliteal and gastrocnemius veins. No DVT detected in the left lower extremity. Head CT 06/22/24 21:03 IMPRESSION: No acute intracranial process. Labs Labs: Laboratory Results - last 24 hr 06/22/24 06/23/24 15:35 06:18 WBC 14.7 H 13.9 H RBC 4.74 4.79 Hgb 14.3 14.5 Hct 41.8 L 41.8 L MCV 88.2 87.3 MCH 30.2 30.3 MCHC 34.2 34.7 RDW 12.8 12.7 Plt Count 139 L 140 L MPV 9.9 9.9 Sodium 135 L Potassium 3.7 Chloride 104 Carbon Dioxide 26 Anion Gap 5 BUN 20 Creatinine 1.10 Estim Creat Clear Calc 47 Estimated GFR > 60 Glucose 106 Calcium 8.3 L Total Bilirubin 2.2 H AST 30 ALT 41 Alkaline Phosphatase 58 Total Protein 7.0 Albumin 3.6
[2024-06-24 06:00] VITALS: BP 123/56; PULSE 63; RESP 20; TEMP 36.3; O2SAT 95
[2024-06-24 07:01] LABS: Hematocrit 38.5 % (42.0-52.0); Hemoglobin 13.4 g/dL (14.0-18.0); Mean Corpuscular HGB Conc 34.8 g/dl (32-36); Mean Corpuscular Hemoglobin 30.4 pg (26-34); Mean Corpuscular Volume 87.3 fl (80-100); Mean Platelet Volume 10.6 fl (7.4-10.4); Platelet Count Result 143 k/mm3 (150-375); Red Blood Count 4.41 M/mm3 (4.6-6.20); Red Cell Distribution Width 12.9 % (11.5-14.5)
[2024-06-24 07:10] LABS: Anion Gap 4 mmol/L (4-12); Blood Urea Nitrogen 24 mg/dL (9-20); Carbon Dioxide 28 mmol/L (22-30); Chloride 104 mmol/L (98-107); Estimated CRCL calculation 40 ml/min; Estimated Glomerular Filt Rate 53; Glucose 115 mg/dL (65-110); Potassium 3.6 mmol/L (3.4-5.0); Sodium 136 mmol/L (137-145)
[2024-06-24] MEDS: TAMSULOSIN HCL 0.4 MG CAPSULE PO (08:59)
[2024-06-24] MEDS: ATORVASTATIN 10 MG TABLET BY MOUTH (08:59)
[2024-06-24] MEDS: APIXABAN 5 MG TABLET 10 MG PO ×2 (08:59→20:10)
[2024-06-24] MEDS: FINASTERIDE 5 MG TABLET PO (09:00)
[2024-06-24] MEDS: amLODIPine BESYLATE 5 MG TABLET BY MOUTH (09:00)
[2024-06-24] MEDS: SILVER SULFADIAZINE 1% CR 400 GM JAR (*BKC) 1 APPLIC TOPICAL ×2 (10:49→17:13)
[2024-06-24 14:00] VITALS: BP 138/62; PULSE 82; RESP 18; TEMP 36.8; O2SAT 96
[2024-06-24 19:30] VITALS: BP 119/54; PULSE 85; RESP 18; TEMP 36.8; O2SAT 96
[2024-06-25 05:04] VITALS: BP 117/67; PULSE 67; RESP 16; TEMP 36.8; O2SAT 94
[2024-06-25 06:14] LABS: Hematocrit 40.8 % (42.0-52.0); Hemoglobin 13.8 g/dL (14.0-18.0); Mean Corpuscular HGB Conc 33.8 g/dl (32-36); Mean Corpuscular Hemoglobin 30.3 pg (26-34); Mean Corpuscular Volume 89.5 fl (80-100); Mean Platelet Volume 10.8 fl (7.4-10.4); Platelet Count Result 141 k/mm3 (150-375); Red Blood Count 4.56 M/mm3 (4.6-6.20); Red Cell Distribution Width 12.8 % (11.5-14.5); White Blood Count 8.7 K/mm3 (4.5-10.0)
[2024-06-25 06:18] LABS: Anion Gap 6 mmol/L (4-12); Blood Urea Nitrogen 20 mg/dL (9-20); Calcium 8.2 mg/dL (8.4-10.2); Carbon Dioxide 23 mmol/L (22-30); Chloride 107 mmol/L (98-107); Estimated CRCL calculation 44 ml/min; Estimated Glomerular Filt Rate 58; Glucose 111 mg/dL (65-110); Potassium 3.7 mmol/L (3.4-5.0); Sodium 136 mmol/L (137-145)
[2024-06-25] MEDS: APIXABAN 5 MG TABLET 10 MG PO ×2 (08:54→20:14)
[2024-06-25] MEDS: TAMSULOSIN HCL 0.4 MG CAPSULE PO (08:55)
[2024-06-25] MEDS: ATORVASTATIN 10 MG TABLET BY MOUTH (08:55)
[2024-06-25] MEDS: amLODIPine BESYLATE 5 MG TABLET BY MOUTH (08:55)
[2024-06-25] MEDS: FINASTERIDE 5 MG TABLET PO (08:55)
[2024-06-25 14:00] VITALS: BP 123/69; PULSE 86; RESP 18; TEMP 37.1; O2SAT 96
--- NOTE | 2024-06-25 15:19 | P.PNIM_ITS ---
Progress Note: A&P Assessment and Plan (1) Weakness: Code(s): R53.1 - Weakness Status: Acute (2) Stasis ulcer of right lower extremity: Code(s): I83.019 - Varicose veins of right lower extremity with ulcer of unspecified s ite; L97.919 - Non-pressure chronic ulcer of unspecified part of right lower leg with unspecified severity Status: Acute Assessment and Plan: - Appear stable. - Encouraged to elevate extremities as tolerated. (3) Generalized weakness: Code(s): R53.1 - Weakness Status: Acute Assessment and Plan: - Continue PT/OT treatment. - Fall precautions. (4) Frequent falls: Code(s): R29.6 - Repeated falls Status: Acute Assessment and Plan: - Likely secondary to generalized muscle weakness. - Worked with PT and home discharge with walker recommended. (5) Dizziness: Code(s): R42 - Dizziness and giddiness Status: Chronic Assessment and Plan: - Appears resolved. - Denies symptoms. (6) Elevated WBC count: Code(s): D72.829 - Elevated white blood cell count, unspecified Status: Acute Assessment and Plan: - Unclear etiology. - Possibly reactive to fall vs DVT vs other. - Resolved. (7) DVT (deep venous thrombosis): Code(s): I82.409 - Acute embolism and thrombosis of unspecified deep veins of unspecified lower extremity Status: Acute Assessment and Plan: Acute deep venous thrombosis in the right popliteal and gastrocnemius veins. No DVT detected in the left lower extremity. eliquis 10 mg bid x 10 days, then 5 mg bid x 3 months with repeat DVT. Plan DVT prophylaxis: eliquis Full code Time Spent With Patient Time with patient: 15 - 25 minutes Subjective Date/time seen: 06/24/24 15:19 Patient states he feels alright and has no distressful symptoms. Interval history: Patient on bedrest with some generalized muscle weakness. Does not appear to be in any acute distress. Review of Systems Review of Systems: All systems reviewed & are unremarkable except as noted in HPI and below Exam Narrative: General: Generalized muscle weakness but no acute distress. HEENT: Atraumatic, PERRL, EOM, moist mucosa. NECK: Supple. Lungs: Clear bilaterally. Heart: RRR, no murmurs. Abdomen: Soft, non-tender, non-distended, +ve bowel sounds X4 quadrants. Extremities: 2+ edema LLE. Skin: Warm and dry with no lesions. Neuro: Fairly well oriented. CN II-XII grossly intact. Psych: Pleasant and co-operative. Objective Data Vital Signs Vital Signs: Vital Signs - 24 hr 06/24/24 19:30 06/24/24 20:00 06/25/24 05:04 Temperature 98.3 F 98.2 F Pulse Rate 85 67 Respiratory Rate 18 16 Blood Pressure 119/54 L 117/67 Pulse Oximetry 96 94 Oxygen Delivery Room Air 06/25/24 08:00 06/25/24 14:00 Temperature 98.7 F Pulse Rate 86 Respiratory Rate 18 Blood Pressure 123/69 Pulse Oximetry 96 Oxygen Delivery Room Air Intake/Output Intake/Output: Intake & Output 06/22/24 06/23/24 06/24/24 06/25/24 23:59 23:59 23:59 23:59 Intake Total 240 2220 1370 1118 Output Total 300 150 450 Balance -60 2220 1220 668 Meds/Results Medications: Active Medications Generic Name Dose Route Start Last Admin Trade Name Freq PRN Reason Stop Dose Admin Amlodipine Besylate 5 mg 06/23/24 09:00 06/25/24 08:55 Amlodipine Besylate 5 Mg Tablet BY MOUTH 5 mg DAILY POOL Administration Apixaban 10 mg 06/24/24 09:00 06/25/24 08:54 Apixaban 5 Mg Tablet PO 06/30/24 21:01 10 mg Q12HR POOL Administration Apixaban 5 mg 07/01/24 09:00 Apixaban 5 Mg Tablet PO Q12HR POOL Atorvastatin Calcium 10 mg 06/23/24 09:00 06/25/24 08:55 Atorvastatin 10 Mg Tablet BY MOUTH 10 mg DAILY POOL Administration Finasteride 5 mg 06/23/24 09:00 06/25/24 08:55 Finasteride 5 Mg Tablet PO 5 mg DAILY POOL Administration Tamsulosin HCl 0.4 mg 06/24/24 09:00 06/25/24 08:55 Tamsulosin Hcl 0.4 Mg Capsule PO 0.4 mg QAM POOL Administration Radiology Results: ITS Impressions Chest X-Ray 06/22/24 07:45 IMPRESSION: 1. No acute cardiopulmonary disease. Venous Doppler Study 06/22/24 18:56 IMPRESSION: Acute deep venous thrombosis in the right popliteal and gastrocnemius veins. No DVT detected in the left lower extremity. Head CT 06/22/24 21:03 IMPRESSION: No acute intracranial process. Labs Labs: Laboratory Results - last 24 hr 06/25/24 05:49 WBC 8.7 RBC 4.56 L Hgb 13.8 L Hct 40.8 L MCV 89.5 MCH 30.3 MCHC 33.8 RDW 12.8 Plt Count 141 L MPV 10.8 H Sodium 136 L Potassium 3.7 Chloride 107 Carbon Dioxide 23 Anion Gap 6 BUN 20 Creatinine 1.20 Estim Creat Clear Calc 44 Estimated GFR 58 L Glucose 111 H Calcium 8.2 L Quality VTE Prophylaxis VTE prophylaxis: pharmacologic ordered Hospitalist [facility] Advance Care Plan I have confirmed that the patient's Advanced Care Plan is present, code status is documented, or surrogate decision maker is listed in patient medical record.: Yes Medication Reconciliation I have utilized all available resources to obtain, update and review the patients current medications (includes all prescriptions, OTC, herbals, cannabis, and nutritional supplements).: Yes
--- NOTE | 2024-06-25 15:34 | PM.DS ---
DS: Admitting Diagnosis Discharge Date 06/25/2024 Admitting Diagnosis Generalized Muscle Weakness DS: Discharge Diagnosis Discharge Diagnosis (1) Weakness: Code(s): R53.1 - Weakness Status: Acute Assessment and Plan: - Possibly secondary to deconditioning. - Improved with PT/OT treatment. - Use of walker with ambulation recommended. 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 - Continue wound care at home. (3) Generalized weakness: Code(s): R53.1 - Weakness Status: Acute Assessment and Plan: - Participated in PT/OT. - Use of walker with ambulation recommended. - Fall precautions. (4) Frequent falls: Code(s): R29.6 - Repeated falls Status: Acute Assessment and Plan: - Likely secondary to generalized muscle weakness. - Worked with PT and home discharge with walker recommended. (5) Dizziness: Code(s): R42 - Dizziness and giddiness Status: Chronic Assessment and Plan: - Appears resolved. - Denies symptoms. (6) Elevated WBC count: Code(s): D72.829 - Elevated white blood cell count, unspecified Status: Acute Assessment and Plan: - Unclear etiology. - Possibly reactive to fall vs DVT vs other. - Resolved with no interventions. (7) DVT (deep venous thrombosis): Code(s): I82.409 - Acute embolism and thrombosis of unspecified deep veins of unspecified lower extremity Status: Acute Assessment and Plan: Acute deep venous thrombosis in the right popliteal and gastrocnemius veins. No DVT detected in the left lower extremity. Started on eliquis 10 mg bid x 10 days, then 5 mg bid x 3 months with patient's Hx of repeat DVT. Plan Discharge home. DS: Summary Hospital Course Reason for hospitalization: Generalized Muscle Weakness. Hospital Course: Patient was brought in to the ER with reports of increased generalized muscle weakness causing recurrent fall episodes. Pt had a CT head done that was negative for acute. Patient's CXR with no infiltrates, with UA negative for UTI. Patient's weakness was suspected to be possibly secondary to RLE DVT that was diagnosed during this admission vs deconditioning. He was started on Eliquis for his DVT, and pt worked with PT/OT, who recommended home discharge with walker for ambulation. Patient's other chronic conditions remained stable, and he's medically stable for home discharge. Status at Discharge Functional status at discharge: uses cane/walker Overall status at discharge: patient is progressing back to baseline Time Spent with Patient Time attestation: Total time spent providing and/or coordinating discharge services: Time spent: Greater than 30 minutes Exam Narrative: General: Generalized muscle weakness but no acute distress. HEENT: Atraumatic, PERRL, EOM, moist mucosa. NECK: Supple. Lungs: Clear bilaterally. Heart: RRR, no murmurs. Abdomen: Soft, non-tender, non-distended, +ve bowel sounds X4 quadrants. Extremities: 2+ edema LLE. Skin: Warm and dry, small RLE venous lesion appears non-infected. Neuro: Fairly well oriented. CN II-XII grossly intact. Psych: Pleasant and co-operative. DS: Data Data Completed and Pending Labs on day of discharge: Labs from last 24 hours 06/25/24 05:49 WBC 8.7 RBC 4.56 L Hgb 13.8 L Hct 40.8 L MCV 89.5 MCH 30.3 MCHC 33.8 RDW 12.8 Plt Count 141 L MPV 10.8 H Sodium 136 L Potassium 3.7 Chloride 107 Carbon Dioxide 23 Anion Gap 6 BUN 20 Creatinine 1.20 Estim Creat Clear Calc 44 Estimated GFR 58 L Glucose 111 H Calcium 8.2 L Preliminary micro results at discharge 06/22/24 07:27 Blood Culture - Preliminary Blood 06/22/24 07:27 Blood Culture - Preliminary Blood Discharge Plan Discharge Attending physician on discharge: Remi Larios Discharging Clinician: Don Ernandez Anticipated Discharge Date/Time: 06/25/24 15:43 Patient Disposition: Home, Self-Care Activity: as tolerated Diet: heart healthy Patient Instructions: Antibiotic Form, Apixaban (By mouth) Stand Alone Forms: General Discharge Information Follow-up/Referrals: Geoffrey Rubio APRN [Primary Care Provider] - Discharge Medications: New Eliquis 5 mg Tablet 5 mg PO Q12HR Qty: 60 2RF Eliquis 5 mg Tablet 10 mg PO Q12HR Qty: 11 0RF Continued silver sulfadiazine [Silvadene] 1 % cream 1 applic topical BID Qty: 85 0RF Rx Instructions: apply a 1.5 mm thickness to leg ulcers triamcinolone acetonide 0.1 % cream 1 applic TOPICAL BID PRN (Reason: dermatitis) Qty: 30 1RF meclizine 25 mg tablet 25 mg PO TID PRN (Reason: dizziness) Qty: 30 2RF cyanocobalamin (vitamin B-12) [Vitamin B-12] 1,000 mcg Tablet 1,000 mcg PO QAM Qty: 30 0RF aspirin 325 mg Tablet 325 mg PO DAILY amlodipine 5 mg tablet See Rx Instructions .ROUTE .COMPLEX Qty: 90 1RF Dose Instruction: TAKE 1 TABLET BY MOUTH EVERY DAY Rx Instructions: TAKE 1 TABLET BY MOUTH EVERY DAY atorvastatin 10 mg tablet See Rx Instructions .ROUTE .COMPLEX Qty: 90 1RF Dose Instruction: TAKE 1 TABLET BY MOUTH EVERY DAY Rx Instructions: TAKE 1 TABLET BY MOUTH EVERY DAY tamsulosin 0.4 mg capsule 0.4 mg PO DAILY Qty: 90 1RF finasteride 5 mg tablet 5 mg PO DAILY Qty: 90 1RF Date of admission: 06/23/24 16:14 Primary Care Provider: Geoffrey Rubio Admitting Provider: Moises Frey Attending physician on admission: Moises Frey Condition: Stable Quality VTE Prophylaxis VTE prophylaxis: pharmacologic ordered Hospitalist MIPS Heart Failure (Exclusion) Patient has history of Heart Transplant or Left Ventricular Assistive Device?: No IF YES, STOP HERE Heart Failure (Qualifier) Patient has current or prior documentation of LVEF less than or equal to 40%, or mod/servere depressed LVSF?: No IF NO, STOP HERE
[2024-06-25 21:53] VITALS: BP 128/67; PULSE 86; RESP 20; TEMP 37; O2SAT 95
--- NOTE | 2024-06-26 04:43 | PC.NURSE ---
pt having difficulty urinating. pt voided 100mL and states he still feels like he needs to pee. patient states occasionally this (retention) happens at home and he has to straight cath himself a couple times, and then states it usually just fixes itself after a day or 2 . straight cath orders received for bladder scanning showing >350mL. ok to straight cath following patient's self cath regimen
[2024-06-26 06:00] VITALS: BP 127/66; PULSE 70; RESP 18; TEMP 36.9; O2SAT 93
[2024-06-26 06:21] LABS: Hematocrit 39.8 % (42.0-52.0); Hemoglobin 13.4 g/dL (14.0-18.0); Mean Corpuscular HGB Conc 33.7 g/dl (32-36); Mean Corpuscular Volume 89.2 fl (80-100); Mean Platelet Volume 10.1 fl (7.4-10.4); Platelet Count Result 163 k/mm3 (150-375); Red Blood Count 4.46 M/mm3 (4.6-6.20); Red Cell Distribution Width 12.7 % (11.5-14.5); White Blood Count 8.2 K/mm3 (4.5-10.0)
[2024-06-26 06:41] LABS: Anion Gap 2 mmol/L (4-12); Blood Urea Nitrogen 20 mg/dL (9-20); Calcium 8.1 mg/dL (8.4-10.2); Carbon Dioxide 27 mmol/L (22-30); Chloride 108 mmol/L (98-107); Estimated CRCL calculation 47 ml/min; Estimated Glomerular Filt Rate > 60; Glucose 106 mg/dL (65-110); Potassium 3.7 mmol/L (3.4-5.0); Sodium 137 mmol/L (137-145)
[2024-06-26] MEDS: ATORVASTATIN 10 MG TABLET BY MOUTH (07:51)
[2024-06-26] MEDS: APIXABAN 5 MG TABLET 10 MG PO (07:51)
[2024-06-26] MEDS: FINASTERIDE 5 MG TABLET PO (07:51)
[2024-06-26] MEDS: TAMSULOSIN HCL 0.4 MG CAPSULE PO (07:51)
[2024-06-26] MEDS: amLODIPine BESYLATE 5 MG TABLET BY MOUTH (07:51)
--- NOTE | 2024-06-26 11:26 | PM.IMPN ---
Progress Note: A&P Assessment and Plan (1) Weakness: Code(s): R53.1 - Weakness Status: Acute Assessment and Plan: - Possibly secondary to deconditioning vs age related vs other. - Improved with PT/OT treatment. - Use of walker with ambulation recommended. 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 - Continue wound care at home. (3) Generalized weakness: Code(s): R53.1 - Weakness Status: Acute Assessment and Plan: - Participated in PT/OT. - Use of walker with ambulation recommended. - Fall precautions. (4) Frequent falls: Code(s): R29.6 - Repeated falls Status: Acute Assessment and Plan: - Likely secondary to generalized muscle weakness. - Worked with PT and home discharge with walker recommended. (5) Dizziness: Code(s): R42 - Dizziness and giddiness Status: Chronic Assessment and Plan: - Appears resolved. - Denies symptoms. (6) Elevated WBC count: Code(s): D72.829 - Elevated white blood cell count, unspecified Status: Acute Assessment and Plan: - Unclear etiology. - Possibly reactive to fall vs DVT vs other. - Resolved with no interventions. (7) DVT (deep venous thrombosis): Code(s): I82.409 - Acute embolism and thrombosis of unspecified deep veins of unspecified lower extremity Status: Acute Assessment and Plan: Acute deep venous thrombosis in the right popliteal and gastrocnemius veins. No DVT detected in the left lower extremity. Started on eliquis 10 mg bid x 10 days, then 5 mg bid x 3 months with patient's Hx of repeat DVT. Plan Discharge home. Time Spent With Patient Time with patient: 15 - 25 minutes Subjective Date/time seen: 06/25/24 11:26 Patient states he feels alright and has been doing well with PT, ambulating on the hallways. Interval history: Patient calm on bedrest and looks to be in no acute distress. Review of Systems Review of Systems: All systems reviewed & are unremarkable except as noted in HPI and below Exam Narrative: General: Some generalized muscle weakness but no acute distress. HEENT: Atraumatic, PERRL, EOM, moist mucosa. NECK: Supple. Lungs: Clear bilaterally. Heart: RRR, no murmurs. Abdomen: Soft, non-tender, non-distended, +ve bowel sounds X4 quadrants. Extremities: 2+ edema LLE. Skin: Warm and dry, small RLE venous lesion appears non-infected. Neuro: Fairly well oriented. CN II-XII grossly intact. Psych: Pleasant and co-operative. Objective Data Vital Signs Vital Signs: Vital Signs - 24 hr 06/25/24 14:00 06/25/24 21:53 06/25/24 20:00 Temperature 98.7 F 98.6 F Pulse Rate 86 86 Respiratory Rate 18 20 Blood Pressure 123/69 128/67 Pulse Oximetry 96 95 Oxygen Delivery Room Air 06/26/24 06:00 06/26/24 08:00 Temperature 98.4 F Pulse Rate 70 Respiratory Rate 18 Blood Pressure 127/66 Pulse Oximetry 93 Oxygen Delivery Room Air Intake/Output Intake/Output: Intake & Output 06/23/24 06/24/24 06/25/24 06/26/24 23:59 23:59 23:59 23:59 Intake Total 2220 1370 2458 340 Output Total 150 550 375 Balance 2220 1220 1908 -35 Meds/Results Radiology Results: ITS Impressions Chest X-Ray 06/22/24 07:45 IMPRESSION: 1. No acute cardiopulmonary disease. Venous Doppler Study 06/22/24 18:56 IMPRESSION: Acute deep venous thrombosis in the right popliteal and gastrocnemius veins. No DVT detected in the left lower extremity. Head CT 06/22/24 21:03 IMPRESSION: No acute intracranial process. Labs Labs: Laboratory Results - last 24 hr 06/26/24 05:38 WBC 8.2 RBC 4.46 L Hgb 13.4 L Hct 39.8 L MCV 89.2 MCH 30.0 MCHC 33.7 RDW 12.7 Plt Count 163 MPV 10.1 Sodium 137 Potassium 3.7 Chloride 108 H Carbon Dioxide 27 Anion Gap 2 L BUN 20 Creatinine 1.10 Estim Creat Clear Calc 47 Estimated GFR > 60 Glucose 106 Calcium 8.1 L Quality VTE Prophylaxis VTE prophylaxis: pharmacologic ordered Hospitalist MIPS Advance Care Plan I have confirmed that the patient's Advanced Care Plan is present, code status is documented, or surrogate decision maker is listed in patient medical record.: Yes Medication Reconciliation I have utilized all available resources to obtain, update and review the patients current medications (includes all prescriptions, OTC, herbals, cannabis, and nutritional supplements).: Yes
== END 2024-06-26 10:22 | disposition home or self-care (01) | DRG 948 ==
LOC: ANHED 10:14 → ANH3MEDSUR 11:13
PROVIDERS: General Practice; Nurse Practitioner; Student in an Organized Health Care Education/Training Program; Admitting Provider Internal Medicine; Emergency Provider Emergency Medicine; PCP Nurse Practitioner; Visit Provider Nurse Practitioner Adult Health
DX: R53.81 Other malaise (principal); L97.919 Non-pressure chronic ulcer of unspecified part of right lower leg with unspecified severity; I82.431 Acute embolism and thrombosis of right popliteal vein; W06.XXXA Fall from bed, initial encounter; D72.829 Elevated white blood cell count, unspecified; E78.5 Hyperlipidemia, unspecified; I25.10 Atherosclerotic heart disease of native coronary artery without angina pectoris; I82.461 Acute embolism and thrombosis of right calf muscular vein; I10 Essential (primary) hypertension; I83.019 Varicose veins of right lower extremity with ulcer of unspecified site; N40.0 Benign prostatic hyperplasia without lower urinary tract symptoms; R42 Dizziness and giddiness; R29.6 Repeated falls; Z86.718 Personal history of other venous thrombosis and embolism; Z79.82 Long term (current) use of aspirin; Z95.5 Presence of coronary angioplasty implant and graft; Z95.1 Presence of aortocoronary bypass graft
CPT/HCPCS: 36415; 70450; 71045; 80048; 80053; 81001; 83605; 85025; 85027; 85610; 85730; 86140; 87040; 93005; 93970; 96372; 97110; 97161; 97165; 97530; 97535; 99285; A9270; G0378; J1650